=== PATIENT | female | born 1940 | race Caucasian/White ===

== ENCOUNTER → 2017-01-25 | Outpatient (CLI) | payer MEDICARE, BC ==
[2017-01-25 13:47] LABS: ALKALINE PHOSPHATASE 83 U/L (45-117); ALT (GPT) 29 U/L (10-53); ANION GAP 8 MEQ/L (5-15); AST (GOT) 20 U/L (15-37); BICARBONATE 28.9 MEQ/L (21.0-32.0); BLOOD UREA NITROGEN 15 MG/DL (7-18); CHLORIDE 108 MEQ/L (98-107); GLOMERULAR FILTRATION RATE 72 ML/MIN (>89); GLUCOSE,FASTING 108 MG/DL (74-99); HDL CHOLESTEROL 79.8 MG/DL (40.0-60.0); LDL CHOLESTEROL 64 MG/DL (0-99); SODIUM (NA) 145 MEQ/L (136-145); TOTAL BILIRUBIN ADULT 0.3 MG/DL (0.2-1.0)
== END ==
LOC: PLAB 08:32
PROVIDERS: ATTEND Family Medicine
DX: E78.2 Mixed hyperlipidemia (principal); E03.9 Hypothyroidism, unspecified; R73.01 Impaired fasting glucose
CPT/HCPCS: 36415; 80053; 80061; 84443

== ENCOUNTER → 2017-07-27 | Outpatient (CLI) | payer MEDICARE, BC ==
[2017-07-27 10:42] LABS: ANION GAP 7 MEQ/L (5-15); AST (GOT) 21 U/L (15-37); BICARBONATE 27.9 MEQ/L (21.0-32.0); BLOOD UREA NITROGEN 15 MG/DL (7-18); CHLORIDE 107 MEQ/L (98-107); GLOMERULAR FILTRATION RATE 82 ML/MIN (>89); GLUCOSE,FASTING 118 MG/DL (74-99); POTASSIUM 4.1 MEQ/L (3.5-5.1); SODIUM (NA) 142 MEQ/L (136-145)
[2017-07-27 10:43] LABS: ALT (GPT) 27 U/L (10-53)
[2017-07-27 10:53] LABS: ALKALINE PHOSPHATASE 100 U/L (45-117); HDL CHOLESTEROL 65.6 MG/DL (40.0-60.0); LDL CHOLESTEROL 74 MG/DL (0-99); TOTAL BILIRUBIN ADULT 0.3 MG/DL (0.2-1.0)
== END ==
LOC: PLAB 07:31
PROVIDERS: ATTEND Family Medicine
DX: E78.2 Mixed hyperlipidemia (principal); E03.9 Hypothyroidism, unspecified
CPT/HCPCS: 36415; 80053; 80061; 84443

== ENCOUNTER → 2017-08-18 | Outpatient (CLI) | payer MEDICARE, BC | LOC: PLAB 09:53 | PROVIDERS: ATTEND Family Medicine | DX: E03.9 Hypothyroidism, unspecified (principal) | CPT/HCPCS: 36415; 84439 ==

== ENCOUNTER → 2017-12-22 | Outpatient (CLI) | payer MEDICARE, BC ==
[2017-12-22 13:56] LABS: FREE T3 2.11 PG/ML (2.18-3.98); FREE T4 0.83 NG/DL (0.76-1.46)
== END ==
LOC: PLAB 09:47
PROVIDERS: ATTEND Family Medicine
DX: E03.9 Hypothyroidism, unspecified (principal)
CPT/HCPCS: 36415; 84439; 84443; 84481; 84482

== ENCOUNTER → 2018-01-26 | Outpatient (CLI) | payer MEDICARE, BC ==
[2018-01-26 10:44] LABS: AUTOMATED NEUTROPHIL # 2.1 TH/MM3 (1.8-7.7); BASOPHIL % 0.8 % (0.0-2.0); EOSINOPHIL # 0.1 TH/MM3 (0-0.4); EOSINOPHIL % 3.2 % (0.0-4.0); HEMATOCRIT 40.4 % (35.0-46.0); HEMOGLOBIN 13.4 GM/DL (11.6-15.3); LYMPH % 36.9 % (9.0-44.0); LYMPHOCYTE # 1.6 TH/MM3 (1.0-4.8); MEAN CELL VOLUME 92.1 FL (80.0-100.0); MEAN CORPUSCULAR HEMOGLOBIN 30.6 PG (27.0-34.0); MEAN CORPUSCULAR HGB CONC 33.3 % (32.0-36.0); MEAN PLATELET VOLUME 9.8 FL (7.0-11.0); MONO % 10.7 % (0.0-8.0); MONOCYTE # 0.5 TH/MM3 (0-0.9); NEUT % 48.4 % (16.0-70.0); PLATELET COUNT 174 TH/MM3 (150-450); RED BLOOD COUNT 4.39 MIL/MM3 (4.00-5.30); RED CELL DISTRIBUTION WIDTH 13.7 % (11.6-17.2); WHITE BLOOD COUNT 4.4 TH/MM3 (4.0-11.0)
[2018-01-26 10:54] LABS: ALBUMIN 3.8 GM/DL (3.4-5.0); AST (GOT) 24 U/L (15-37); BICARBONATE 28.5 MEQ/L (21.0-32.0); BLOOD UREA NITROGEN 12 MG/DL (7-18); CALCIUM 8.6 MG/DL (8.5-10.1); CHLORIDE 110 MEQ/L (98-107); CHOLESTEROL 155 MG/DL (120-200); CREATININE 0.69 MG/DL (0.50-1.00); GLOMERULAR FILTRATION RATE 82 ML/MIN (>89); GLUCOSE,FASTING 118 MG/DL (74-99); SODIUM (NA) 143 MEQ/L (136-145); TRIGLYCERIDES 87 MG/DL (42-150)
[2018-01-26 11:06] LABS: ALKALINE PHOSPHATASE 82 U/L (45-117); ALT (GPT) 34 U/L (10-53); CHOLESTEROL/ HDL RATIO 2.18 RATIO; HDL CHOLESTEROL 70.8 MG/DL (40.0-60.0); LDL CHOLESTEROL 67 MG/DL (0-99); TOTAL BILIRUBIN ADULT 0.5 MG/DL (0.2-1.0); TOTAL PROTEIN 7.5 GM/DL (6.4-8.2)
== END ==
LOC: PLAB 07:09
PROVIDERS: ATTEND Family Medicine
DX: E78.2 Mixed hyperlipidemia (principal); R73.01 Impaired fasting glucose; R06.02 Shortness of breath; E03.9 Hypothyroidism, unspecified
CPT/HCPCS: 36415; 80053; 80061; 84443; 85025

== ENCOUNTER → 2018-02-27 | Outpatient (CLI) | payer MEDICARE, BC ==
[2018-02-27 13:59] LABS: HEMOGLOBIN A1C 5.8 % (4.3-6.0)
[2018-02-27 14:08] LABS: RHEUMATOID FACTOR SCREEN NEGATIVE (NEGATIVE)
[2018-02-27 14:18] LABS: C-REACTIVE PROTEIN 0.65 MG/DL (0.00-0.30); FREE T3 2.86 PG/ML (2.18-3.98); FREE T4 1.39 NG/DL (0.76-1.46)
== END ==
LOC: PLAB 08:59
PROVIDERS: ATTEND Family Medicine
DX: E03.9 Hypothyroidism, unspecified (principal); J84.10 Pulmonary fibrosis, unspecified; E11.9 Type 2 diabetes mellitus without complications
CPT/HCPCS: 36415; 83036; 84439; 84443; 84481; 84482; 85652; 86038; 86140; 86430

== ENCOUNTER 2018-12-20 12:03 | Inpatient (IN) ==
--- NOTE | 2018-12-20 13:06 | ED ---
HPI General Chief complaint: Back Pain/Injury Stated complaint: Evac/Rt side pain Time Seen by Provider: 12/20/18 12:49 Source: patient Mode of arrival: ambulatory Limitations: no limitations History of Present Illness HPI narrative: 78yo F with PMH of hyperlipidemia, pulmonary fibrosis here with sob and right sided chest pain since yesterday. Pain radiates from right lower lung to right chest and is sharp, worst with breathing. +Cough. Pain is moderate in severity and constant. Denies any fever, n/v, abdominal pain, trauma, focal weakness or numbness. Denies any PE/DVT, hemoptysis. Related Data Home Medications Medication Instructions Recorded Confirmed levothyroxine 125 mcg PO DAILY 12/20/18 12/20/18 lovastatin mg PO DAILY 12/20/18 multivitamin 1 cap PO QAM 12/20/18 12/20/18 Allergies Allergy/AdvReac Type Severity Reaction Status Date / Time acetaminophen Allergy Severe Itching Verified 12/20/18 14:24 amoxicillin Allergy Severe Muscle Pain Verified 12/20/18 12:14 aspirin Allergy Severe Itching Verified 12/20/18 14:24 oxycodone Allergy Severe Itching Verified 12/20/18 14:24 Review of Systems ROS: all other systems reviewed are negative [facility] Surgical History Surgical History H/O oophorectomy (Acute) History of cholecystectomy (Acute) History of foot surgery (Acute) Social History Social History Substance History: No History of Abuse Smoking Status: Former smoker Tobacco Type: Cigarettes How Often Do You Have a Drink Containing Alcohol: Monthly or less Recent Travel in [facility] within the Last 8 Weeks: No Recent Out of Country Travel within the Last 8 Weeks: No Immunization History Tetanus Immunization: >5 Years Exam Narrative Exam Narrative: GENERAL: 78yo F in mild distress. SKIN: Focused skin assessment warm/dry. HEAD: Atraumatic. Normocephalic. EYES: Pupils equal and round. No scleral icterus. No injection or drainage. ENT: No nasal bleeding or discharge. Mucous membranes pink and moist. NECK: Trachea midline. No JVD. CARDIOVASCULAR: Regular rate and rhythm. No murmur appreciated. RESPIRATORY: + accessory muscle use. Crackles in right lower lung. GASTROINTESTINAL: Abdomen soft, non-tender, nondistended. MUSCULOSKELETAL: No obvious deformities. No clubbing. No cyanosis. Trace bilateral lower extremity edema. NEUROLOGICAL: Awake and alert. No obvious cranial nerve deficits. Motor grossly within normal limits. Normal speech. PSYCHIATRIC: Appropriate mood and affect; insight and judgment normal. Course Initial Documented Vital Signs Temperature 98 F 12/20/18 12:07 Pulse Rate 80 12/20/18 12:07 Respiratory Rate 20 12/20/18 12:07 Blood Pressure 150/79 H 12/20/18 12:07 Pulse Oximetry 95 12/20/18 12:07 Last Documented Vital Signs Temperature 98.0 F 12/21/18 14:15 Pulse Rate 86 12/21/18 14:30 Respiratory Rate 20 12/21/18 14:30 Blood Pressure 131/59 L 12/21/18 14:30 Pulse Oximetry 94 L 12/21/18 14:30 Critical Care Time Critical Care Time: Yes Total Critical Care Time: 40 Attestation: Aggregate critical care time was 40 minutes. Time to perform other separately billable procedures was not included in the critical care time. My time did not include minutes spent treating any other patients simultaneously or on activities that did not directly contribute to the patient's treatment. The services I provided to this patient were to treat and/or prevent clinically significant deterioration that could result in: Cardiovascular collapse or . I provided critical care services requiring my management, as noted below: Chart data review, documentation time, medication orders and management, vital sign assessments/reviewing monitor data, ordering and reviewing lab tests, ordering and interpreting/reviewing x-rays and diagnostic studies, care of the patient and discussion of the patient with the admitting physicians. Medical Decision Making MDM Narrative Medical decision making narrative: 78yo F with right sided chest pain and sob since yesterday. O2 sat fluctuates between 91-95% on RA. Pt said she usually takes aspirin for pain and is not allergic to it and wants that for pain so given one dose. CXR showed patchy interstitial infiltrates, right worst than left. Pt has not been hospitalized in last 3 months and denies any anaphylactic reaction to amoxicillin. Said she just gets muscle ache. Pt given ceftriaxone and azithromycin. Labs reviewed, no leukocytosis. H/H normal. Hyponatremia at 119. Added legionella. Hypochloremia. Pt given IVF NS. Troponin negative. BNP normal. D-dimer mildly elevated at 0.51. CTA chest showed right hilar mass with abnormal soft tissue extending directly into the mediastinum with some circumferential involvement of left main pulmonary artery and right main bronchus. Not present on previous study. 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 Ultrasound guided bronchoscopy recommended for diagnosis. Discussed with personal counselor Dr. Pfeiffer who recommended transfer to [facility] after midnight and he will do bronchoscopy tomorrow. Agrees with antibiotics. Discussed with Dr. Vazquez and accepted to his service. Medical Screen Exam Complete: Yes Emergency Medical Condition: Yes Differential Diagnosis Differential Diagnosis: Pneumonia vs. pleural effusion vs. pulmonary fibrosis vs. PE vs. ACS Lab Data Result diagrams: 12/21/18 08:10 12/21/18 08:10 Lab Results 12/20/18 12/20/18 12/20/18 Range/Units 13:02 13:02 13:02 CBC w Diff Auto diff final WBC 10.8 (4.0-11.0) th/mm3 RBC 4.63 (4.00-5.30) mil/mm3 Hgb 13.7 (11.6-15.3) gm/dL Hct 41.0 (35.0-46.0) % MCV 88.6 (80.0-100.0) fL MCH 29.6 (27.0-34.0) pg MCHC 33.4 (32.0-36.0) % RDW 12.3 (11.6-17.2) % Plt Count 215 (150-450) th/mm3 MPV 8.8 (7.0-11.0) fL Neut % (Auto) 85.3 H (16.0-70.0) % Lymph % (Auto) 7.5 L (9.0-44.0) % Cache % (Auto) 6.7 (0.0-8.0) % Eos % (Auto) 0.2 (0.0-4.0) % Baso % (Auto) 0.3 (0.0-2.0) % Neut # (Auto) 9.3 H (1.8-7.7) th/mm3 Lymph # (Auto) 0.8 L (1.0-4.8) th/mm3 Cache # (Auto) 0.7 (0.0-0.9) th/mm3 Eos # (Auto) 0.0 (0.0-0.4) th/mm3 Baso # (Auto) 0.0 (0.0-0.2) th/mm3 WBC Differential . Differential Comment . PT 10.1 (9.8-11.6) sec INR 1.0 Ratio APTT 29.4 (23.4-31.7) sec D-Dimer Quant (PE/DVT) 0.51 H (0.00-0.50) mg/L FEU Sodium 119 L* (136-145) meq/L Potassium 4.2 (3.5-5.1) meq/L Chloride 85 L (98-107) meq/L Carbon Dioxide 25.4 (21.0-32.0) meq/L Anion Gap 9 (5-15) meq/L BUN 9 (7-18) mg/dL Creatinine 0.56 (0.50-1.00) mg/dL Estimated GFR Greater than 89 (>89) mL/min Random Glucose 140 H (74-106) mg/dL Calcium 8.9 (8.5-10.1) mg/dL Total Bilirubin 0.7 (0.2-1.0) mg/dL AST 18 (15-37) U/L ALT 26 (10-53) U/L Alkaline Phosphatase 111 (45-117) U/L Lactate Dehydrogenase (84-246) U/L Troponin I Less than 0.02 L (0.02-0.05) ng/mL B-Natriuretic Peptide (0-100) pg/mL Total Protein 8.2 (6.4-8.2) g/dL Albumin 4.1 (3.4-5.0) g/dL Tumor Marker AFP (0.5-8.0) ng/mL Carcinoembryonic Ag (0.2-5.0) ng/mL CA 15-3 Antigen (0.0-32.4) U/mL CA 125 Antigen (0.0-30.2) U/mL 12/20/18 12/20/18 12/20/18 Range/Units 13:02 18:01 18:01 CBC w Diff WBC (4.0-11.0) th/mm3 RBC (4.00-5.30) mil/mm3 Hgb (11.6-15.3) gm/dL Hct (35.0-46.0) % MCV (80.0-100.0) fL MCH (27.0-34.0) pg MCHC (32.0-36.0) % RDW (11.6-17.2) % Plt Count (150-450) th/mm3 MPV (7.0-11.0) fL Neut % (Auto) (16.0-70.0) % Lymph % (Auto) (9.0-44.0) % Cache % (Auto) (0.0-8.0) % Eos % (Auto) (0.0-4.0) % Baso % (Auto) (0.0-2.0) % Neut # (Auto) (1.8-7.7) th/mm3 Lymph # (Auto) (1.0-4.8) th/mm3 Cache # (Auto) (0.0-0.9) th/mm3 Eos # (Auto) (0.0-0.4) th/mm3 Baso # (Auto) (0.0-0.2) th/mm3 WBC Differential Differential Comment PT (9.8-11.6) sec INR Ratio APTT (23.4-31.7) sec D-Dimer Quant (PE/DVT) (0.00-0.50) mg/L FEU Sodium (136-145) meq/L Potassium (3.5-5.1) meq/L Chloride (98-107) meq/L Carbon Dioxide (21.0-32.0) meq/L Anion Gap (5-15) meq/L BUN (7-18) mg/dL Creatinine (0.50-1.00) mg/dL Estimated GFR (>89) mL/min Random Glucose (74-106) mg/dL Calcium (8.5-10.1) mg/dL Total Bilirubin (0.2-1.0) mg/dL AST (15-37) U/L ALT (10-53) U/L Alkaline Phosphatase (45-117) U/L Lactate Dehydrogenase 231 (84-246) U/L Troponin I (0.02-0.05) ng/mL B-Natriuretic Peptide 43 (0-100) pg/mL Total Protein (6.4-8.2) g/dL Albumin (3.4-5.0) g/dL Tumor Marker AFP 11.9 H (0.5-8.0) ng/mL Carcinoembryonic Ag 1.6 (0.2-5.0) ng/mL CA 15-3 Antigen 36.0 H (0.0-32.4) U/mL CA 125 Antigen 6.1 (0.0-30.2) U/mL 12/21/18 12/21/18 Range/Units 08:10 08:10 CBC w Diff WBC 3.9 L D (4.0-11.0) th/mm3 RBC 4.31 (4.00-5.30) mil/mm3 Hgb 13.2 (11.6-15.3) gm/dL Hct 38.3 (35.0-46.0) % MCV 88.9 (80.0-100.0) fL MCH 30.6 (27.0-34.0) pg MCHC 34.4 (32.0-36.0) % RDW 13.3 (11.6-17.2) % Plt Count 201 (150-450) th/mm3 MPV 8.8 (7.0-11.0) fL Neut % (Auto) 86.8 H (16.0-70.0) % Lymph % (Auto) 10.9 (9.0-44.0) % Cache % (Auto) 2.3 (0.0-8.0) % Eos % (Auto) 0.0 (0.0-4.0) % Baso % (Auto) 0.0 (0.0-2.0) % Neut # (Auto) 3.4 (1.8-7.7) th/mm3 Lymph # (Auto) 0.4 L (1.0-4.8) th/mm3 Cache # (Auto) 0.1 (0.0-0.9) th/mm3 Eos # (Auto) 0.0 (0.0-0.4) th/mm3 Baso # (Auto) 0.0 (0.0-0.2) th/mm3 WBC Differential . Differential Comment Auto diff final PT (9.8-11.6) sec INR Ratio APTT (23.4-31.7) sec D-Dimer Quant (PE/DVT) (0.00-0.50) mg/L FEU Sodium 118 L* (136-145) meq/L Potassium 4.2 (3.5-5.1) meq/L Chloride 85 L (98-107) meq/L Carbon Dioxide 23.9 (21.0-32.0) meq/L Anion Gap 9 (5-15) meq/L BUN 7 (7-18) mg/dL Creatinine 0.45 L (0.50-1.00) mg/dL Estimated GFR Greater than 89 (>89) mL/min Random Glucose 147 H (74-106) mg/dL Calcium 8.5 (8.5-10.1) mg/dL Total Bilirubin 0.7 (0.2-1.0) mg/dL AST 16 (15-37) U/L ALT 25 (10-53) U/L Alkaline Phosphatase 99 (45-117) U/L Lactate Dehydrogenase (84-246) U/L Troponin I (0.02-0.05) ng/mL B-Natriuretic Peptide (0-100) pg/mL Total Protein 7.7 (6.4-8.2) g/dL Albumin 3.4 D (3.4-5.0) g/dL Tumor Marker AFP (0.5-8.0) ng/mL Carcinoembryonic Ag (0.2-5.0) ng/mL CA 15-3 Antigen (0.0-32.4) U/mL CA 125 Antigen (0.0-30.2) U/mL Imaging Data Radiologist's impression: Chest X-Ray 12/20/18 12:53 CONCLUSION: Patchy interstitial infiltrates Chest CTA 12/20/18 14:15 CONCLUSION: 1. Right hilar mass with abnormal soft tissue extending directly into the mediastinum with some circumferential involvement of the left main pulmonary artery and the right main bronchus. Findings were not present on the previous study 2. 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 Ultrasound-guided bronchoscopy could easily be used to make a diagnosis Chest X-Ray 12/21/18 12:42 CONCLUSION: Cardiomegaly with basilar dependent airspace disease in the lungs. No pneumothorax. ECG Data EKG Prior to Arrival: No Attestation: I personally reviewed and interpreted this ECG as follows: Interpretation: NSR 77bpm. Normal axis. OH interval 193ms. Q wave III. No significant ST elevation or depression. Discharge Plan Discharge Disposition Patient Disposition: ED Admit(ED Internal Use Only) Discharge Order Discharge Orders: ED Use Only Admit Order (Routine); Ordered 12/20/18 Ordered By: Cece Hussein Discharge Details Diagnosis: Hilar mass Physicians Team ED Provider: Cece Hussein Primary Care Provider: Belgica Méndez Attending Provider: Francisco Moser Other Providers: Rashi Pfeiffer Zafar Status ED Status: Left Department Discharge Information Discharge Date/Time: 12/20/18 19:47
[2018-12-20] MEDS ORDERED: Aspirin 325 MG Tablet PO ONE (13:17)
--- NOTE | 2018-12-20 13:18 | XR ---
EXAM DATE: 12/20/2018 1:16 PM EST AGE/SEX: 78 years / Female INDICATIONS: Right side chest pain while breathing. CLINICAL DATA: This is the patient's initial encounter. Patient reports that signs and symptoms have been present for 2 days and indicates a pain score of 7/10. MEDICAL/SURGICAL HISTORY: . Pulmonary fibrosis. Cholecystectomy. Oophorectomy. COMPARISON: [facility], CT CHEST W/O CONTRAST, 01/25/2018. . FINDINGS: Patchy interstitial infiltrate, right worse than left. Cardiac contours are satisfactory. CONCLUSION: Patchy interstitial infiltrates Electronically signed by: Rashi Crowe MD Board Certified Radiologist 12/20/2018 1:17 PM EST
[2018-12-20 13:19] LABS: Baso % (Auto) 0.3 % (0.0-2.0); Eos % (Auto) 0.2 % (0.0-4.0); Hemoglobin 13.7 gm/dL (11.6-15.3); Lymph # (Auto) 0.8 th/mm3 (1.0-4.8); Lymph % (Auto) 7.5 % (9.0-44.0); Mean Corpuscular HGB Conc 33.4 % (32.0-36.0); Mean Corpuscular Hemoglobin 29.6 pg (27.0-34.0); Mean Corpuscular Volume 88.6 fL (80.0-100.0); Mean Platelet Volume 8.8 fL (7.0-11.0); Mono # (Auto) 0.7 th/mm3 (0.0-0.9); Mono % (Auto) 6.7 % (0.0-8.0); Neut # (Auto) 9.3 th/mm3 (1.8-7.7); Neut % (Auto) 85.3 % (16.0-70.0); Platelet Count 215 th/mm3 (150-450); Red Blood Count 4.63 mil/mm3 (4.00-5.30); Red Cell Distribution Width 12.3 % (11.6-17.2); White Blood Count 10.8 th/mm3 (4.0-11.0)
[2018-12-20 13:41] LABS: Activated Partial Thrombo Time 29.4 sec (23.4-31.7); Prothrombin Time 10.1 sec (9.8-11.6)
[2018-12-20 13:45] LABS: D-Dimer 0.51 mg/L FEU (0.00-0.50)
[2018-12-20 13:46] LABS: Alanine Aminotransferase 26 U/L (10-53); Albumin 4.1 g/dL (3.4-5.0); Alkaline Phosphatase 111 U/L (45-117); Anion Gap 9 meq/L (5-15); Aspartate Aminotransferase 18 U/L (15-37); Blood Urea Nitrogen 9 mg/dL (7-18); Calcium 8.9 mg/dL (8.5-10.1); Carbon Dioxide 25.4 meq/L (21.0-32.0); Chloride 85 meq/L (98-107); Glomerular Filtration Rate Greater Than 89 mL/min (>89); Glucose,Random 140 mg/dL (74-106); Potassium 4.2 meq/L (3.5-5.1); Total Protein 8.2 g/dL (6.4-8.2)
[2018-12-20] MEDS ORDERED: Azithromycin 250 MG Tablet PO ONE (14:15)
[2018-12-20 14:36] LABS: Sodium 119 meq/L (136-145)
--- NOTE | 2018-12-20 15:06 | CT ---
EXAM DATE: 12/20/2018 2:57 PM EST AGE/SEX: 78 years / Female INDICATIONS: Short of breath, right sided chest pain and cough. CLINICAL DATA: This is the patient's initial encounter. Patient reports that signs and symptoms have been present for 1 day and indicates a pain score of 10/10. MEDICAL/SURGICAL HISTORY: . Pulmonary fibrosis. Cholecystectomy. Oophorectomy. RADIATION DOSE: 14.82 CTDI (mGy) COMPARISON: [facility], CT CHEST W/O CONTRAST, 08/03/2017. . TECHNIQUE: Volumetric scanning was performed using a multi-row detector CT scanner during bolus infu lisette of 75 ml Omnipaque 350 (iohexol) nonionic water-soluble contrast as a single exam dose. The jair a was post processed with a variety of visualization algorithms including full volume maximum intensi ty projection and sliding thin slab reformation. Using automated exposure control and adjustment of t he mA and/or kV according to patient size, radiation dose was kept as low as reasonably achievable to obtain optimal diagnostic quality images. DICOM format image data is available electronically for r eview and comparison. FINDINGS: Pulmonary arteries Arteries: There is good visualization of the central pulmonary arteries. There is a large mass involving the right hilum with subcarinal adenopathy that is partially occluding the rig ht main pulmonary artery. There is no evidence for pulmonary emboli. LUNGS: Early airspace disease is seen in the right lung with a small right pleural effusion. Mediastinum: There is no axillary adenopathy. There is mediastinal adenopathy with nodes in the AP wi ndow, precarinal space and a large subcarinal mass from direct extension from the right hilar mass. Portion of liver identified is free of focal defects. CONCLUSION: 1. Right hilar mass with abnormal soft tissue extending directly into the mediastinum with some circ umferential involvement of the left main pulmonary artery and the right main bronchus. Findings were not present on the previous study 2. 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 Ultrasound-guided bronchoscopy could easily be used to make a diagnosis Electronically signed by: Con Singh MD Board Certified Radiologist 12/20/2018 3:04 PM EST
[2018-12-20] MEDS ORDERED: Acetaminophen 325 MG Tablet PO PRN (16:05)
[2018-12-20] MEDS: Sod Chloride 0.9% Inj 1,000 ML IV.CONT SCH (17:00)
--- NOTE | 2018-12-20 17:15 | P.HPIM ---
History of Present Illness Primary Care Physician: Belgica Méndez MD Chief Complaint: Acute onset of shortness of breath along with right-sided chest pain History of Present Illness: 78-year-old female for past medical history of hypothyroidism, hyperlipidemia and a 40+ years of prior history of tobacco abuse presented to the ED today for evaluation of an acute onset of shortness of breath which started around 3 AM this morning. Patient states, she became slightly short of breath and was gasping for air as a result she could not talk. She also noted significant right-sided pain mostly on the right shoulder blade as well as the right breast area. She presented to the ED , and a chest x-ray was positive for patchy interstitial infiltrate. Secondary to elevated d-dimer a chest CT was ordered which revealed a right hilar mass for which pulmonary medicine was consulted for bronchoscopy. Patient state, recent chest MRI was performed on and revealed pulmonary fibrosis however without any evidence of lung mass. Abnormal lab include sodium of 119 and chloride of 85. Patient denies any nausea and vomiting. She also complained of dry cough. She has had no hemoptysis or GI bleed. Inpatient Certification Inpatient Certification: I certify that the inpatient services were ordered in accordance with Medicare regulations governing the order. This includes certification that hospital inpatient services are reasonable and necessary and in the case of services not specified as inpatient-only under 42 CFR 419.22(n), that they are appropriately provided as inpatient services in accordance to with the 2-midnight benchmark under 43 CFR 412.3(e) Estimated Total Length of Stay (Days): 2 Plans for Post Hospital Care: Not yet determined Review of Systems Review of Systems: all other systems reviewed are negative [facility] Surgical History Surgical History H/O oophorectomy (Acute) History of cholecystectomy (Acute) History of foot surgery (Acute) Social History Social History Substance History: No History of Abuse Smoking Status: Former smoker Tobacco Type: Cigarettes How Often Do You Have a Drink Containing Alcohol: Monthly or less Recent Travel in [facility] within the Last 8 Weeks: No Recent Out of Country Travel within the Last 8 Weeks: No Immunization History Tetanus Immunization: >5 Years Medications and Allergies Allergies Allergy/AdvReac Type Severity Reaction Status Date / Time acetaminophen Allergy Severe Itching Verified 12/20/18 14:24 amoxicillin Allergy Severe Muscle Pain Verified 12/20/18 12:14 aspirin Allergy Severe Itching Verified 12/20/18 14:24 oxycodone Allergy Severe Itching Verified 12/20/18 14:24 Home Medications Medication Instructions Recorded Confirmed Type levothyroxine 125 mcg PO DAILY 12/20/18 12/20/18 History lovastatin mg PO DAILY 12/20/18 History multivitamin 1 cap PO QAM 12/20/18 12/20/18 History Active Medications: Active Medications Acetaminophen (Tylenol) 650 mg PO Q4H PRN PRN Reason: Temp > 100.4 Al Hydroxide/Mg Hydroxide (Milk Of Joaquín Singh) 30 ml PO Q12H PRN PRN Reason: Mild Constipation Albuterol (Duoneb Neb (Prn)) 1 ampul NEB Q2HR NEB PRN PRN Reason: SHORTNESS OF BREATH Albuterol (Duoneb Neb (Bill)) 1 ampul NEB Q6HR WHILE AWAKE NEB BILL Enalaprilat (Vasotec Inj) 2.5 mg IV.PUSH Q6H PRN PRN Reason: SBP>160, DBP>90 Guaifenesin (Mucinex Er) 600 mg PO BID BILL Sodium Chloride (Ns Inj) 1,000 mls @ 70 mls/hr IV.CONT .[id number] BILL Last Admin: 12/20/18 17:00 Dose: 70 mls/hr Azithromycin 500 mg/ Sodium (Chloride) 250 mls @ 250 mls/hr IV.SIG Q24H BILL Ceftriaxone Sodium 1,000 mg/ (Sodium Chloride) 100 mls @ 200 mls/hr IV.SIG Q24H BILL Non-Formulary Medication (Levothyroxine [Levothyroxine]) 125 mcg PO DAILY BILL Ondansetron HCl (Zofran Inj) 4 mg IV.PUSH Q6H PRN PRN Reason: NAUSEA OR VOMITING Sodium Chloride (Ns Flush) 2 ml IV.FLUSH BID BILL Sodium Chloride (Ns Flush) 2 ml IV.FLUSH PRN PRN PRN Reason: FLUSH AFTER USING IV ACCESS Physical Exam Vital signs: Vital Signs 12/20/18 12:07 12/20/18 12:20 12/20/18 12:53 Temperature 98 F Pulse Rate 80 Respiratory Rate 20 24 Blood Pressure 150/79 H Pulse Oximetry 95 93 L 96 12/20/18 13:00 12/20/18 14:37 12/20/18 15:40 Temperature Pulse Rate 80 77 84 Respiratory Rate 22 18 22 Blood Pressure 138/73 141/76 H 156/86 H Pulse Oximetry 94 L 95 95 Intake & Output 12/19/18 12/20/18 12/20/18 18:59 06:59 18:59 Intake Total 100 / 100 Balance 100 / 100 Weight 85 kg Intake: IV 100 / 100 Rocephin Inj 1,000 MG In NS Inj 100 / 100 100 ML @ 200 mls/hr IV.SIG ONCE ONE Rx#:[id number] Narrative: GENERAL: NAD SKIN: Warm and dry. HEAD: Atraumatic. Normocephalic. EYES: Pupils equal and round. No scleral icterus. No injection or drainage. ENT: No nasal bleeding or discharge. Mucous membranes pink and moist. NECK: Trachea midline. No JVD. CARDIOVASCULAR: Regular rate and rhythm. RESPIRATORY: No accessory muscle use. Clear to auscultation. Breath sounds decrease R>L. GASTROINTESTINAL: Abdomen soft, non-tender, nondistended. Hepatic and splenic margins not palpable. MUSCULOSKELETAL: Extremities without clubbing, cyanosis, or edema. No obvious deformities. NEUROLOGICAL: Awake and alert. No obvious cranial nerve deficits. Motor grossly within normal limits. Five out of 5 muscle strength in the arms and legs. Normal speech. PSYCHIATRIC: Appropriate mood and affect; insight and judgment normal. Results Labs CBC & Chem 7: 12/20/18 13:02 12/20/18 13:02 Imaging Impressions Chest X-Ray 12/20/18 12:53 CONCLUSION: Patchy interstitial infiltrates Chest CTA 12/20/18 14:15 CONCLUSION: 1. Right hilar mass with abnormal soft tissue extending directly into the mediastinum with some circumferential involvement of the left main pulmonary artery and the right main bronchus. Findings were not present on the previous study 2. 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 Ultrasound-guided bronchoscopy could easily be used to make a diagnosis Caprini VTE Risk Assessment Caprini VTE Risk Assessment: Moderate/High Risk (score >= 2) Caprini Risk Assessment Model: Point Value = 1 Point Value = 2 Point Value = 3 Point Value = 5 Age 41-60 Minor surgery BMI > 25 kg/m2 Swollen legs Varicose veins or History of unexplained or recurrent spontaneous Oral contraceptives or hormone replacement Sepsis (< 1 month) Serious lung disease, including pneumonia (< 1 month) Abnormal pulmonary function Acute myocardial infarction Congestive heart failure (< 1 month) History of inflammatory bowel disease Medical patient at bed rest Age 61-74 Arthroscopic surgery Major open surgery (> 45 min) Laparoscopic surgery (> 45 min) Malignancy Confined to bed (> 72 hours) Immobilizing plaster cast Central venous access Age >= 75 History of VTE Family history of VTE Factor V Leiden Prothrombin [id number] Lupus anticoagulant Anticardiolipin antibodies Elevated serum homocysteine Heparin-induced thrombocytopenia Other congenital or acquired thrombophilia Stroke (< 1 month) Elective arthroplasty Hip, pelvis, or leg fracture Acute spinal cord injury (< 1 month) Prophylaxis Regimen: Total Risk Factor Score Risk Level Prophylaxis Regimen 0-1 Low Early ambulation 2 Moderate Order ONE of the following: *Sequential Compression Device (SCD) *Heparin 5000 units SQ BID 3-4 Higher Order ONE of the following medications: *Heparin 5000 units SQ TID *Enoxaparin/Lovenox 40 mg SQ daily (WT < 150 kg, CrCl > 30 mL/min) *Enoxaparin/Lovenox 30 mg SQ daily (WT < 150 kg, CrCl > 10-29 mL/min) *Enoxaparin/Lovenox 30 mg SQ BID (WT < 150 kg, CrCl > 30 mL/min) AND/OR *Sequential Compression Device (SCD) 5 or more Highest Order ONE of the following medications: *Heparin 5000 units SQ TID (Preferred with Epidurals) *Enoxaparin/Lovenox 40 mg SQ daily (WT < 150 kg, CrCl > 30 mL/min) *Enoxaparin/Lovenox 30 mg SQ daily (WT < 150 kg, CrCl > 10-29 mL/min) *Enoxaparin/Lovenox 30 mg SQ BID (WT < 150 kg, CrCl > 30 mL/min) AND *Sequential Compression Device (SCD) Assessment and Plan Plan 78-year-old female with Acute onset of shortness of breath Right-sided chest pain Right hilar mass on chest CT Chest CTA 12/20/18 1. Right hilar mass with abnormal soft tissue extending directly into the mediastinum with some circumferential involvement of the left main pulmonary artery and the right main bronchus. Findings were not present on the previous study 2. 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 after midnight Check tumor markers Patchy interstitial infiltrate on chest x-ray History of pulmonary fibrosis Dyspnea Status post IV azithromycin and Rocephin continue antibiotics pending sputum and culture report DuoNeb as needed and schedule Start Solu-Medrol schedule Pulmonary medicine consultation pending Maintain oxygen saturation above 92% Hypochloremic hyponatremia May be secondary to able right hilar mass Treat as an above Hyperglycemia Check hemoglobin A1c and treat accordingly DVT prophylaxis: Bilateral SCDs
--- NOTE | 2018-12-20 18:58 | MB ---
cc: Efrain Pfeiffer MD DATE: 12/20/2018 REASON FOR CONSULTATION: Lung mass. HISTORY OF PRESENT ILLNESS: This is a 78-year-old lady with a history of COPD, hyperlipidemia, hypothyroidism, and pulmonary fibrosis. She has been admitted with onset of chest pain acutely earlier this morning, which got worse through the day. The pain started around the right shoulder blade and moved into her chest and she could not take deep breaths and thus came to the emergency room. Upon arrival, she was sent for a CT chest. The chest CT demonstrated a right hilar mass, and no evidence of pulmonary emboli. She did, however, have pulmonary fibrosis. The patient has had no recent weight loss. No hemoptysis. Denies nausea, vomiting, fevers or chills. PAST SURGICAL HISTORY: Includes history of COPD, history of cholecystectomy and history of oophorectomy, and surgery on her foot. HABITS: The patient smoked 1 pack per day for over 40 years and quit many years ago. No significant alcohol use. She has been exposed to asbestos in the past. ALLERGIES: TYLENOL, AMOXICILLIN, ASPIRIN, OXYCODONE. FAMILY HISTORY: Her father of a ruptured aneurysm. Mother of old age. One sister had history for lung cancer, treated. REVIEW OF SYSTEMS: The patient has not lost weight. She has pains along the back and right chest, shortness of breath with activity. She has wheezing. She has epigastric distress. Denies any leg or calf muscle pains. She has some joint pains and denies anxiety or depression. MEDICATION LIST: 1. Levothyroxine 125 mcg daily. 2. Lovastatin 20 mg daily. PHYSICAL EXAMINATION: GENERAL: This is an averagely built, elderly, white female who is alert, pale and mildly dyspneic at rest. VITAL SIGNS: Her blood pressure is 130/70, pulse is 85, respirations 20, temperature 98. HEENT: Head is normocephalic. Pupils are reactive. Tongue is moist. Nasal mucosa edematous. Throat is clear. NECK: Supple. No lymphadenopathy. Trachea midline. CHEST: Equal movements, with decreased breath sounds over the right mid lower chest. There are wheezes scattered bilaterally. HEART: The heart sounds are regular, S1, S2 with no definite murmur, no S3. ABDOMEN: Soft, obese without masses. No organomegaly or tenderness. Bowel sounds are active. EXTREMITIES: Reveal varicosities and minimal edema. Reflexes are 1+ with no gross motor deficits. Cranial nerves are grossly intact. SKIN: Dry and cool. IMPRESSION: 1. Right hilar mass with chest pain. 2. Chronic obstructive pulmonary disease with an acute exacerbation. 3. Obstructive pneumonitis with pleurisy. 4. History of hypothyroidism. PLAN: The patient has been started on nebulized DuoNeb solution q.i.d., oxygen 2 liters nasal cannula, and will also be placed on Rocephin 1 gram IV daily, as well as Solu-Medrol 40 mg IV every 8 hours. A bronchoscopy will be scheduled. The potential risks of doing a bronchoscopy including bleeding, pneumothorax, respiratory failure, etc. were discussed and this will be scheduled for the morning. We will hold off on any anticoagulants presently. Thank you, Dr. Vazquez, for this consultation. MD BROOKE Hutson/david , 05:40 PM , 05:54 PM
--- NOTE | 2018-12-20 19:56 | ECG ---
Date Performed: 12/20/2018 Time Performed: 12:54:37 PTAGE: 78 years EKG: Sinus rhythm LOW QRS VOLTAGE IN PRECORDIAL LEADS BORDERLINE ECG Since PREVIOUS TRACING , no significant change noted PREVIOUS TRACIN12/15/2004 10.48 DOCTOR: America Warren Interpretating Date/Time 12/20/2018 19:55:49
[2018-12-20] MEDS: guaiFENesin 600 MG ER Tablet PO SCH (22:27)
[2018-12-20] MEDS: MethylPREDNISolone Sod Succinate Inj 40 MG/ML Vial IV.PUSH SCH (22:27)
[2018-12-20 23:25] LABS: Alpha Fetoprotein Tumor Marker 11.9 ng/mL (0.5-8.0); Carcinoembryonic Antigen 1.6 ng/mL (0.2-5.0)
[2018-12-21 00:02] LABS: Cancer Antigen 125 6.1 U/mL (0.0-30.2)
[2018-12-21] MEDS ORDERED: Levothyroxine 125 MCG Tablet PO SCH (06:00)
--- NOTE | 2018-12-21 06:21 | P.PNIM ---
Subjective Interval history: F/u lung mass. Improved shortness of breath and back pain. Refused breast exam Physical Exam Vital signs: Vital Signs 12/20/18 12:07 12/20/18 12:20 12/20/18 12:53 Temperature 98 F Pulse Rate 80 Respiratory Rate 20 24 Blood Pressure 150/79 H Pulse Oximetry 95 93 L 96 12/20/18 13:00 12/20/18 14:37 12/20/18 15:40 Temperature Pulse Rate 80 77 84 Respiratory Rate 22 18 22 Blood Pressure 138/73 141/76 H 156/86 H Pulse Oximetry 94 L 95 95 12/20/18 16:30 12/20/18 17:11 12/20/18 18:27 Temperature Pulse Rate 79 77 Respiratory Rate 20 20 Blood Pressure 137/79 169/96 H Pulse Oximetry 96 93 L 97 12/20/18 18:28 12/20/18 18:46 12/20/18 19:42 Temperature Pulse Rate 75 Respiratory Rate 18 18 Blood Pressure 145/81 H Pulse Oximetry 97 97 12/20/18 21:06 12/21/18 00:05 12/21/18 00:50 Temperature 97.7 F 98.3 F Pulse Rate 78 80 Respiratory Rate 20 18 Blood Pressure 168/84 H 128/86 Pulse Oximetry 98 97 95 12/21/18 03:15 12/21/18 05:13 Temperature 97.5 F L Pulse Rate 75 Respiratory Rate 18 18 Blood Pressure 153/69 H Pulse Oximetry 95 Intake & Output 12/20/18 12/20/18 12/21/18 06:59 18:59 06:59 Intake Total 100 / 100 200 / 200 Balance 100 / 100 200 / 200 Weight 85 kg 87.7 kg Intake: IV 100 / 100 200 / 200 NS Inj 1,000 ML @ 70 mls/hr IV. 200 / 200 CONT .[id number] DAGO Rx#: [id number] Rocephin Inj 1,000 MG In NS Inj 100 / 100 100 ML @ 200 mls/hr IV.SIG ONCE ONE Rx#:[id number] Other: # Voids 1 Narrative: GENERAL: NAD SKIN: Warm and dry. CARDIOVASCULAR: Regular rate and rhythm. RESPIRATORY: No accessory muscle use. Clear to auscultation. GASTROINTESTINAL: Abdomen soft, non-tender, nondistended. MUSCULOSKELETAL: Extremities without clubbing, cyanosis, or edema. No obvious deformities. NEUROLOGICAL: Awake and alert. No obvious cranial nerve deficits. Motor grossly within normal limits. Five out of 5 muscle strength in the arms and legs. Normal speech. PSYCHIATRIC: Appropriate mood and affect; insight and judgment normal. Results Labs CBC & Chem 7: 12/21/18 08:10 12/21/18 08:10 Imaging Imaging: ITS Impressions Chest X-Ray 12/20/18 12:53 CONCLUSION: Patchy interstitial infiltrates Chest CTA 12/20/18 14:15 CONCLUSION: 1. Right hilar mass with abnormal soft tissue extending directly into the mediastinum with some circumferential involvement of the left main pulmonary artery and the right main bronchus. Findings were not present on the previous study 2. 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 Ultrasound-guided bronchoscopy could easily be used to make a diagnosis Assessment and Plan Plan 78-year-old female with Acute onset of shortness of breath Right-sided chest pain Right hilar mass on chest CT Pulmonary medicine has been consulted for bronchoscopy, keep NPO Elevated AFP and Ca 15-[address] and consider onc consult COPD exac History of pulmonary fibrosis Dyspnea Status post IV azithromycin and Rocephin continue antibiotics pending sputum and culture report DuoNeb as needed and schedule Ct Solu-Medrol schedule Pulmonary medicine ff Maintain oxygen saturation above 92% Hypochloremic hyponatremia. Asymptomatic. 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 Seizure precautions and neuro checks Hyperglycemia Previously A1c 6.2, repeat A1c pending Low TSH and high FT4, Hx hypothyroidism decrease synthroid DVT prophylaxis: Bilateral SCDs
[2018-12-21] MEDS: MethylPREDNISolone Sod Succinate Inj 40 MG/ML Vial IV.PUSH SCH ×3 (06:26→22:22)
[2018-12-21] MEDS: Sod Chloride 0.9% Inj 1,000 ML IV.CONT SCH (06:52)
[2018-12-21] MEDS ORDERED: Metoprolol Tartrate 25 MG Tablet PO ONE (07:30)
[2018-12-21] MEDS ORDERED: Chlorhexidine Gluconate 2% 1 Pack (2 Cloths) TOPICAL ONE (07:30)
[2018-12-21] MEDS ORDERED: Sodium Chlor 0.9% Inj 500 ML IV.SIG SCH (08:00)
[2018-12-21 08:36] LABS: Hematocrit 38.3 % (35.0-46.0); Hemoglobin 13.2 gm/dL (11.6-15.3); Lymph # (Auto) 0.4 th/mm3 (1.0-4.8); Lymph % (Auto) 10.9 % (9.0-44.0); Mean Corpuscular HGB Conc 34.4 % (32.0-36.0); Mean Corpuscular Hemoglobin 30.6 pg (27.0-34.0); Mean Corpuscular Volume 88.9 fL (80.0-100.0); Mean Platelet Volume 8.8 fL (7.0-11.0); Mono # (Auto) 0.1 th/mm3 (0.0-0.9); Mono % (Auto) 2.3 % (0.0-8.0); Neut # (Auto) 3.4 th/mm3 (1.8-7.7); Neut % (Auto) 86.8 % (16.0-70.0); Platelet Count 201 th/mm3 (150-450); Red Blood Count 4.31 mil/mm3 (4.00-5.30); Red Cell Distribution Width 13.3 % (11.6-17.2); White Blood Count 3.9 th/mm3 (4.0-11.0)
[2018-12-21] MEDS: guaiFENesin 600 MG ER Tablet PO SCH ×2 (08:49→22:22)
[2018-12-21 09:13] LABS: Alanine Aminotransferase 25 U/L (10-53); Albumin 3.4 g/dL (3.4-5.0); Alkaline Phosphatase 99 U/L (45-117); Anion Gap 9 meq/L (5-15); Aspartate Aminotransferase 16 U/L (15-37); Blood Urea Nitrogen 7 mg/dL (7-18); Calcium 8.5 mg/dL (8.5-10.1); Carbon Dioxide 23.9 meq/L (21.0-32.0); Chloride 85 meq/L (98-107); Glomerular Filtration Rate Greater Than 89 mL/min (>89); Glucose,Random 147 mg/dL (74-106); Potassium 4.2 meq/L (3.5-5.1); Total Protein 7.7 g/dL (6.4-8.2)
[2018-12-21 09:17] LABS: Sodium 118 meq/L (136-145)
[2018-12-21] MEDS ORDERED: Diatrizoate Meglum/Diatrizoate Sod Liq 9 ML UDC PO ONE (10:47)
[2018-12-21] MEDS ORDERED: Lidocaine PF 1% Inj 5 ML Syringe OTHER ONE (12:12)
[2018-12-21] MEDS ORDERED: Neostigmine Inj 5 MG/5 ML Syringe IV.PUSH ONE (12:12)
[2018-12-21] MEDS ORDERED: Glycopyrrolate Inj 1 MG/5 ML Syringe IV.PUSH ONE (12:12)
[2018-12-21] MEDS ORDERED: fentaNYL Citrate Inj 100 MCG/2 ML Ampul ONE (13:09)
--- NOTE | 2018-12-21 13:14 | MP ---
cc: Efrain Pfeiffer MD DATE OF OPERATION: 12/21/2018 PROCEDURE PERFORMED: Fiberoptic bronchoscopy with biopsies, brushings and washings. PREOPERATIVE DIAGNOSIS: Right hilar mass. POSTOPERATIVE DIAGNOSIS: Right hilar mass. ANESTHESIA: General with intubation. SURGEON: Efrain Pfeiffer MD PROCEDURE AND FINDINGS: The patient, after informed consent was obtained for bronchoscopy and informing her of the potential risks of bleeding, pneumothorax, respiratory failure, etc., was brought to the OR and under general anesthesia, she was intubated. The Olympus IT 180 bronchoscope was used to visualize the bronchi. The scope was advanced through the endotracheal tube into the trachea. The trachea and mark appeared normal. Scope was then advanced into the right mainstem bronchus and the right upper lobe bronchus. The right upper lobe bronchus was mildly narrowed with mucosal edema and mucosal ridging, but no definite mass could be found. Brushings were done from here for cytology as well as brushings from the right main. Minimal bleeding was observed. Saline washings were done here. Next, the scope was advanced towards the right bronchus intermedius and the middle lobe bronchus. The right middle lobe bronchus was partially occluded with an irregular mucosal lesion extending from the bronchus intermedius downwards and was friable and bled easily to touch. Biopsies were done from this area as well as saline washings and lavage. Bleeding was controlled with epinephrine solution and cold saline and the bleeding was controlled. The scope was then advanced towards the right lower lobe segmental bronchi which demonstrated mucosal ridging and mild narrowing, but no definite mass could be seen. Saline washings were done. The scope was then advanced towards the left mainstem and left upper lobe segmental bronchi. These bronchi demonstrated no gross endobronchial lesions. Next, the lower lobe segmental bronchi were visualized, which demonstrated a few mucoid secretions, but no endobronchial lesions were seen. Saline washings were done and the procedure was then terminated. The patient tolerated the procedure well. Efrain Pfeiffer MD VJD/jl , 12:46 PM , 12:52 PM
--- NOTE | 2018-12-21 13:26 | XR ---
EXAM DATE: 12/21/2018 1:23 PM EST AGE/SEX: 78 years / Female INDICATIONS: Post bronchoscopy. Evaluate for pneumothorax. CLINICAL DATA: This is the patient's subsequent encounter. Patient reports that signs and symptoms h ave been present for 1 day and indicates a pain score of Nonresponsive. MEDICAL/SURGICAL HISTORY: . pulmonary fibrosis, hilar mass Cholecystectomy. oophorectomy COMPARISON: [facility], CHEST 1V SINGLE AP, 12/20/2018. . FINDINGS: A single AP view of the chest demonstrates cardiomegaly. No pneumothorax post bronchoscopy. Basilar d ependent airspace disease in the lungs. CONCLUSION: Cardiomegaly with basilar dependent airspace disease in the lungs. No pneumothorax. Electronically signed by: Jose Ramey MD Board Certified Radiologist 12/21/2018 1:25 PM EST
[2018-12-21 16:17] LABS: Hemoglobin A1c 6.1 % (4.3-6.0)
[2018-12-21] MEDS ORDERED: Phenol 1.4% 180 ML Spray Bottle PO PRN ×2 (18:34→18:45)
[2018-12-21 20:12] LABS: Anion Gap 10 meq/L (5-15); Blood Urea Nitrogen 9 mg/dL (7-18); Calcium 8.6 mg/dL (8.5-10.1); Carbon Dioxide 24.6 meq/L (21.0-32.0); Chloride 86 meq/L (98-107); Glomerular Filtration Rate Greater Than 89 mL/min (>89); Glucose,Random 131 mg/dL (74-106); Potassium 4.3 meq/L (3.5-5.1)
[2018-12-21 20:20] LABS: Sodium 121 meq/L (136-145)
[2018-12-21] MEDS: Azithromycin Inj 500 MG in Sodium Chlor 0.9% Inj 250 ML IV.SIG SCH (22:23)
[2018-12-22] MEDS: MethylPREDNISolone Sod Succinate Inj 40 MG/ML Vial IV.PUSH SCH ×3 (06:47→22:23)
[2018-12-22] MEDS: Levothyroxine 125 MCG Tablet PO SCH (06:49)
[2018-12-22 08:36] LABS: Anion Gap 8 meq/L (5-15); Blood Urea Nitrogen 10 mg/dL (7-18); Calcium 8.4 mg/dL (8.5-10.1); Carbon Dioxide 23.9 meq/L (21.0-32.0); Chloride 87 meq/L (98-107); Glomerular Filtration Rate Greater Than 89 mL/min (>89); Glucose,Random 149 mg/dL (74-106); Magnesium 2.1 mg/dL (1.5-2.5); Potassium 4.3 meq/L (3.5-5.1)
--- NOTE | 2018-12-22 08:41 | P.CON ---
History of Present Illness Service: Hematology/oncology. Consult date: 12/22/18 Requesting Physician: Francisco Moser Reason for Consult: Right hilar mass and mediastinal lymphadenopathy. Primary Care Provider: Belgica Méndez MD Chief Complaint: Difficulty breathing, cough, right sided posterior chest pain. History of Present Illness: Ms. Huerta is a very pleasant 78-year-old female who is originally from [facility], she reports having been a smoker for 40 years, she quit smoking 20 years ago after having smoked for close to 40 pack years. Patient reports over the past 2 weeks having had increased difficulty breathing with exertion and a dry cough. On the morning of Tuesday; 01/17/2019 she woke up at 3 in the morning with the pain along her right shoulder blade. Later that morning she woke up to notice the pain persisted, she was able to walk her dog and gradually became increasingly short of breath. She tells me she got to the point where she was unable to speak complete sentences because she could not "forced out air ". She is brought into the emergency department on 12/20/[address] imaging of the chest to rule out pulmonary embolism, CT angiogram revealed the findings summarized below; she was found to have a right hilar mass associated with mediastinal lymphadenopathy. She was evaluated by Dr. Flaherty of pulmonology and on 12/21/2018 underwent bronchoscopy, she was noted to have an endobronchial lesion involving the right middle lobe bronchus, biopsies were obtained. Results are pending at this time. The oncology service been asked to see her for presumptive diagnosis of primary lung malignancy. Review of Systems Constitutional: Denies anorexia, Denies fatigue, Denies fever(s), Denies lack of energy, Denies night sweats, Denies weakness, Denies weight gain Eyes: Denies change in vision, Denies double vision, Denies loss of vision, Denies requires corrective lenses Ears, Nose, Mouth, and Throat: Denies change in voice, Denies dental pain, Denies nasal obstruction, Denies poor balance, Denies sore throat, Denies throat swelling, Denies tongue swelling Cardiovascular: Reports chest pain, Reports shortness of breath, Reports shortness of breath with activity, Denies chest pain with activity, Denies excessive sweating Respiratory: Reports cough, Reports shortness of breath, Reports shortness of breath with activity, Denies change in phlegm color, Denies coughing up blood Gastrointestinal: Denies abdominal pain, Denies bloating, Denies bright, red blood in stools, Denies nausea, Denies pain with swallowing, Denies vomiting, Denies vomiting blood Genitourinary: Reports absent period Musculoskeletal: Denies abnormal walking, Denies back pain, Denies muscle cramps , Denies stiffness Skin/Breast: Denies breast pain, Denies breast lump, Denies rash, Denies skin pain, Denies yellowing of the skin Neurologic: Denies abnormal hearing, Denies dizziness, Denies fainting Psychiatric: Denies abnormal sleep pattern, Denies anxiety, Denies change in appetite Endocrine: Denies cold intolerance Hematologic/Lymphatic: Denies easy bleeding Allergic/Immunologic: Denies GI upset with certain foods PMFSH - History History Provided By: Patient - Medical History Medical History: Medical History (Last Updated 12/22/18 @ 08:36 by Antony Fleming MD) Cigarette nicotine dependence in remission Hyperlipidemia Hypothyroidism Pulmonary fibrosis - Surgical History Surgical History: Surgical History (Last Reviewed 12/22/18 @ 08:36 by Antony Fleming MD) H/O oophorectomy History of cholecystectomy History of foot surgery - Family History Family History: Family History (Last Updated 12/22/18 @ 08:37 by Antoyn Fleming MD) Sister Small cell lung cancer Other Carcinoma, lung Ovarian cancer - Social History I have reviewed the patient's Social History: Yes - Tobacco History Tobacco Use In Past 30 Days: No (quit long time ago) Smoking Status: Former smoker Tobacco Type: Cigarettes - Alcohol History How Often Do You Have a Drink Containing Alcohol: Monthly or less - Substance Use History Substance History: No History of Abuse - Travel History Recent Travel in the [place] Within the Last 8 Weeks: No Recent Travel Out of the Country Within the Last 8 Weeks: No - Immunization History Tetanus Immunization: >5 Years Medications and Allergies Active Medications: Active Medications Al Hydroxide/Mg Hydroxide (Milk Of Magnbear Liq) 30 ml PO Q12H PRN PRN Reason: Mild Constipation Albuterol (Duoneb Neb (Bill)) 1 ampul NEB Q6HR WHILE AWAKE NEB BILL Last Admin: 12/22/18 07:52 Dose: 1 ampul Albuterol (Albuterol Neb (Prn)) 2.5 mg NEB UNSCH PRN PRN Reason: SHORTNESS OF BREATH Stop: 12/22/18 12:42 Enalaprilat (Vasotec Inj) 2.5 mg IV.PUSH Q6H PRN PRN Reason: SBP>160, DBP>90 Guaifenesin (Mucinex Er) 600 mg PO BID [facility] Last Admin: 12/21/18 22:22 Dose: 600 mg Azithromycin 500 mg/ Sodium (Chloride) 250 mls @ 250 mls/hr IV.SIG Q24H [facility] Last Infusion: 12/21/18 23:23 Dose: Infused Ceftriaxone Sodium 1,000 mg/ (Sodium Chloride) 100 mls @ 200 mls/hr IV.SIG Q24H [facility] Last Infusion: 12/21/18 17:28 Dose: Infused Sodium Chloride (Ns Inj) 500 mls @ 30 mls/hr IV.SIG .Q10H [facility] Last Admin: 12/21/18 17:27 Dose: Not Given Levothyroxine Sodium (Synthroid) 125 mcg PO DAILY@0600 [facility] Last Admin: 12/22/18 06:49 Dose: 125 mcg Methylprednisolone Sodium Succinate (Solumedrol Inj) 40 mg IV.PUSH Q8HR [facility] Last Admin: 12/22/18 06:47 Dose: Not Given Miscellaneous Information (Mis Nursing Information) 1 each OTHER UNSCH PRN PRN Reason: SEE LABEL COMMENTS Stop: 12/22/18 14:13 Ondansetron HCl (Zofran Inj) 4 mg IV.PUSH Q6H PRN PRN Reason: NAUSEA OR VOMITING Sodium Chloride (Ns Flush) 2 ml IV.FLUSH BID [facility] Last Admin: 12/21/18 22:23 Dose: 2 ml Sodium Chloride (Ns Flush) 2 ml IV.FLUSH PRN PRN PRN Reason: FLUSH AFTER USING IV ACCESS Throat Lozenges (Chloraseptic [place]) 1 spray PO Q1H PRN PRN Reason: MOUTH/THROAT PAIN Tramadol HCl (Ultram) 100 mg PO Q6H PRN PRN Reason: Acute Pain 3-5 Last Admin: 12/21/18 22:30 Dose: 100 mg Allergies Allergy/AdvReac Type Severity Reaction Status Date / Time acetaminophen Allergy Severe Itching Verified 12/20/18 14:24 amoxicillin Allergy Severe Muscle Pain Verified 12/20/18 12:14 aspirin Allergy Severe Itching Verified 12/20/18 14:24 oxycodone Allergy Severe Itching Verified 12/20/18 14:24 Home Medications Medication Instructions Recorded Confirmed Type levothyroxine 125 mcg PO DAILY 12/20/18 12/20/18 History lovastatin mg PO DAILY 12/20/18 History multivitamin 1 cap PO QAM 12/20/18 12/20/18 History Physical Exam Vital signs: Vital Signs 12/21/18 08:42 12/21/18 12:58 12/21/18 13:15 Temperature 97.5 F L 97.4 F L Pulse Rate 76 122 H 113 H Respiratory Rate 16 32 H 26 H Blood Pressure 156/74 H 178/73 H 136/65 Pulse Oximetry 95 95 97 12/21/18 13:30 12/21/18 13:45 12/21/18 14:00 Temperature Pulse Rate 102 H 95 H 90 Respiratory Rate 22 18 20 Blood Pressure 162/82 H 150/70 H 134/62 Pulse Oximetry 96 97 95 12/21/18 14:15 12/21/18 14:30 12/21/18 17:53 Temperature 98.0 F 97.8 F Pulse Rate 85 86 65 Respiratory Rate 18 20 16 Blood Pressure 138/65 131/59 L 134/63 Pulse Oximetry 94 L 94 L 94 L 12/21/18 20:00 12/21/18 20:07 12/21/18 20:10 Temperature 97.5 F L Pulse Rate 82 78 Respiratory Rate 20 16 Blood Pressure 131/60 Pulse Oximetry 96 98 12/22/18 00:00 12/22/18 03:17 12/22/18 04:00 Temperature 97.9 F 97.5 F L Pulse Rate 74 81 Respiratory Rate 20 18 20 Blood Pressure 145/67 H 140/65 Pulse Oximetry 96 97 12/22/18 07:52 12/22/18 08:00 Temperature 97.3 F L Pulse Rate 71 70 Respiratory Rate 16 18 Blood Pressure 144/66 H Pulse Oximetry 95 92 L Intake & Output 12/21/18 12/22/18 12/22/18 18:59 06:59 18:59 Intake Total 100 / 100 1050 / 1050 Balance 100 / 100 1050 / 1050 Weight 88.6 kg Intake: IV 100 / 100 1050 / 1050 NS Inj 1,000 ML @ 70 mls/hr IV. 800 / 800 CONT .[id number] BILL Rx#: [id number] Azithromycin Inj 500 MG In NS 250 / 250 Inj 250 ML @ 250 mls/hr IV.SIG Q24H BILL Rx#:[id number] Rocephin Inj 1,000 MG In NS Inj 100 / 100 100 ML @ 200 mls/hr IV.SIG Q24H BILL Rx#:[id number] Narrative: General physical appearance: Patient is an elderly lady, she sitting up in bed, she appears to be no acute distress she has a pleasant disposition. She speaks to me in full sentences, she is awake, alert and oriented x3. HEENT: Head atraumatic no cephalic, conjunctivae are non-pale sclerae anicteric , EOMI, PERRLA. Neck examination: No palpable cervical or supraclavicular adenopathy. Respiratory exam: Good air movement bilaterally, she has expiratory wheezing, scattered rales and rhonchi. Coarse crepitus. Cardioascular exam: Regular rate and rhythm, S1-S2 no obvious murmurs rubs gallops. Good peripheral pulses, no peripheral edema. Abdominal exam: Protuberant abdomen, soft, nontender, nondistended no palpable hepatosplenomegaly. Lower extremity's no pretibial edema no calf tenderness. CHEESE COOK: No focal sensorimotor deficits. Musculoskeletal: Good muscle mass, tone and strength. 5 out of 5 upper and lower tremors. Psychiatric: Awake, alert, oriented, appropriate, understanding conversation held today. Skin examination: Nonfocal. Remainder of the exam was normal. Results - Labs CBC & Chem 7: 12/21/18 08:10 12/21/18 19:03 Labs: Laboratory Results - last 24 hr 12/21/18 12/21/18 12/21/18 08:10 08:10 08:10 WBC 3.9 L D RBC 4.31 Hgb 13.2 Hct 38.3 MCV 88.9 MCH 30.6 MCHC 34.4 RDW 13.3 Plt Count 201 MPV 8.8 Neut % (Auto) 86.8 H Lymph % (Auto) 10.9 [place] % (Auto) 2.3 Eos % (Auto) 0.0 Baso % (Auto) 0.0 Neut # (Auto) 3.4 Lymph # (Auto) 0.4 L [place] # (Auto) 0.1 Eos # (Auto) 0.0 Baso # (Auto) 0.0 WBC Differential . Differential Comment Auto diff final Sodium 118 L* Potassium 4.2 Chloride 85 L Carbon Dioxide 23.9 Anion Gap 9 BUN 7 Creatinine 0.45 L Estimated GFR Greater than 89 Random Glucose 147 H Hemoglobin A1c 6.1 H Calcium 8.5 Total Bilirubin 0.7 AST 16 ALT 25 Alkaline Phosphatase 99 Total Protein 7.7 Albumin 3.4 D 12/21/18 19:03 WBC RBC Hgb Hct MCV MCH MCHC RDW Plt Count MPV Neut % (Auto) Lymph % (Auto) [place] % (Auto) Eos % (Auto) Baso % (Auto) Neut # (Auto) Lymph # (Auto) [place] # (Auto) Eos # (Auto) Baso # (Auto) WBC Differential Differential Comment Sodium 121 L* Potassium 4.3 Chloride 86 L Carbon Dioxide 24.6 Anion Gap 10 BUN 9 Creatinine 0.58 Estimated GFR Greater than 89 Random Glucose 131 H Hemoglobin A1c Calcium 8.6 Total Bilirubin AST ALT Alkaline Phosphatase Total Protein Albumin - Imaging Impressions Chest X-Ray 12/21/18 12:42 CONCLUSION: Cardiomegaly with basilar dependent airspace disease in the lungs. No pneumothorax. Assessment and Plan - Plan Ms. Huerta is a very pleasant 78-year-old female who presents the hospital with progressive difficulty breathing with exertion, dry cough and sudden onset right scapular pain which occurred on 12/20/2018. Imaging studies indicate a right hilar mass associated with extensive mediastinal lymphadenopathy. Bronchoscopy performed on 12/21/2018 indicates a friable mass in the right middle lobe bronchus. Biopsies were obtained, pathology results are pending. Findings are highly concerning for primary lung malignancy associated pathologically enlarged mediastinal lymph nodes. Recommendations: 1. Await final pathology results. If the patient has a small cell carcinoma I will proceed with inpatient staging followed by inpatient systemic chemotherapy. If she has non-small cell carcinoma which is slower growing I would recommend discharge with outpatient staging with a PET CT scan followed by initiation of systemic therapy which would be stage appropriate. Thank you for asking me see this patient. Await pathology results. Additional recommendations to follow.
[2018-12-22 08:56] LABS: Sodium 119 meq/L (136-145)
[2018-12-22] MEDS: guaiFENesin 600 MG ER Tablet PO SCH ×2 (11:35→22:25)
--- NOTE | 2018-12-22 11:51 | P.PNIM ---
Subjective Interval history: Follow-up lung mass and hyponatremia. Patient has no complaints resolved chest and back pain. Denies headache or dizziness. Physical Exam Vital signs: Vital Signs 12/21/18 12:58 12/21/18 13:15 12/21/18 13:30 Temperature 97.4 F L Pulse Rate 122 H 113 H 102 H Respiratory Rate 32 H 26 H 22 Blood Pressure 178/73 H 136/65 162/82 H Pulse Oximetry 95 97 96 12/21/18 13:45 12/21/18 14:00 12/21/18 14:15 Temperature 98.0 F Pulse Rate 95 H 90 85 Respiratory Rate 18 20 18 Blood Pressure 150/70 H 134/62 138/65 Pulse Oximetry 97 95 94 L 12/21/18 14:30 12/21/18 17:53 12/21/18 20:00 Temperature 97.8 F 97.5 F L Pulse Rate 86 65 82 Respiratory Rate 20 16 20 Blood Pressure 131/59 L 134/63 131/60 Pulse Oximetry 94 L 94 L 96 12/21/18 20:07 12/21/18 20:10 12/22/18 00:00 Temperature 97.9 F Pulse Rate 78 74 Respiratory Rate 16 20 Blood Pressure 145/67 H Pulse Oximetry 98 96 12/22/18 03:17 12/22/18 04:00 12/22/18 07:52 Temperature 97.5 F L Pulse Rate 81 71 Respiratory Rate 18 20 16 Blood Pressure 140/65 Pulse Oximetry 97 95 12/22/18 08:00 Temperature 97.3 F L Pulse Rate 70 Respiratory Rate 18 Blood Pressure 144/66 H Pulse Oximetry 92 L Intake & Output 12/21/18 12/22/18 12/22/18 18:59 06:59 18:59 Intake Total 100 / 100 1050 / 1050 Balance 100 / 100 1050 / 1050 Weight 88.6 kg Intake: IV 100 / 100 1050 / 1050 NS Inj 1,000 ML @ 70 mls/hr IV. 800 / 800 CONT .[id number] DAGO Rx#: [id number] Azithromycin Inj 500 MG In NS 250 / 250 Inj 250 ML @ 250 mls/hr IV.SIG Q24H DAGO Rx#:[id number] Rocephin Inj 1,000 MG In NS Inj 100 / 100 100 ML @ 200 mls/hr IV.SIG Q24H DAGO Rx#:[id number] Other: # Voids 2 Narrative: GENERAL: NAD SKIN: Warm and dry. CARDIOVASCULAR: Regular rate and rhythm. RESPIRATORY: No accessory muscle use. Mild expiratory wheezes with GASTROINTESTINAL: Abdomen soft, non-tender, nondistended. MUSCULOSKELETAL: Extremities without clubbing, cyanosis, or edema. No obvious deformities. NEUROLOGICAL: Awake and alert. No obvious cranial nerve deficits. Motor grossly within normal limits. Five out of 5 muscle strength in the arms and legs. Normal speech. PSYCHIATRIC: Appropriate mood and affect; insight and judgment normal. Results Labs CBC & Chem 7: 12/21/18 08:10 12/22/18 07:28 Labs: Microbiology 12/21/18 12:37 Bronchial Washings - Right Upper Lobe Fungal Smear - Final No fungal elements seen 12/21/18 12:37 Bronchial - Right Upper Lobe Gram Stain - Final 12/21/18 02:00 Urine - Clean Catch Urine Legionella Antigen - Final Presumptive negative for Legionella pneumophila serogroup 1 antigen in urine, suggesting no recent or recurrent infection. Infection due to Legionella cannot be ruled out since other serogroups and species may cause disease, antigen may not be present in urine in early infection, and the level of antigen present in the urine may be below the detection limit of the test. Imaging Imaging: Impressions Chest X-Ray 12/21/18 12:42 CONCLUSION: Cardiomegaly with basilar dependent airspace disease in the lungs. No pneumothorax. Procedures Procedures: Bronchoscopy Assessment and Plan Plan 78-year-old female with Acute onset of shortness of breath Right-sided chest pain Right hilar mass on chest CT Right middle lobe bronchial friable mass status post biopsy highly concerning for primary lung malignancy. Also has elevated AFP and Ca 15-3. Oncology consulted, await pathology if positive for small cell carcinoma will proceed with inpatient staging followed by inpatient systemic chemotherapy. If non- small carcinoma, patient can be discharged with outpatient staging with a PET scan COPD exac History of pulmonary fibrosis Dyspnea Status post IV azithromycin and Rocephin continue antibiotics pending sputum and culture report DuoNeb as needed and schedule Ct Solu-Medrol schedule Pulmonary medicine ff Maintain oxygen saturation above 92% Hypochloremic hyponatremia. Asymptomatic. May be secondary to SIADH/right hilar mass. Fluid restriction Dc NS and monitor closely. Seizure precautions and neuro checks. Hyperglycemia A1c 6.1 Low TSH and high FT4, Hx hypothyroidism decrease synthroid DVT prophylaxis: Bilateral SCDs
[2018-12-22] MEDS: Sodium Chloride 1 GM Tablet PO SCH ×2 (12:19→22:25)
--- NOTE | 2018-12-22 19:38 | P.PN ---
Subjective Interval history: She is breathing easier. On O2 at 3 L nasal cannula. No hemoptysis up to bronchoscopy. Pathology report is suggestive of small cell carcinoma. Bronchial brushing cytology suspicious for malignancy. Physical Exam Vital signs: Vital Signs 12/21/18 20:00 12/21/18 20:07 12/21/18 20:10 Temperature 97.5 F L Pulse Rate 82 78 Respiratory Rate 20 16 Blood Pressure 131/60 Pulse Oximetry 96 98 12/22/18 00:00 12/22/18 03:17 12/22/18 04:00 Temperature 97.9 F 97.5 F L Pulse Rate 74 81 Respiratory Rate 20 18 20 Blood Pressure 145/67 H 140/65 Pulse Oximetry 96 97 12/22/18 07:52 12/22/18 08:00 12/22/18 12:00 Temperature 97.3 F L 96.6 F L Pulse Rate 71 70 81 Respiratory Rate 16 18 20 Blood Pressure 144/66 H 149/67 H Pulse Oximetry 95 92 L 95 12/22/18 14:01 12/22/18 16:00 Temperature 97.6 F Pulse Rate 80 79 Respiratory Rate 20 20 Blood Pressure 134/63 Pulse Oximetry 98 Intake & Output 12/22/18 12/22/18 12/23/18 06:59 18:59 06:59 Intake Total 1050 / 1050 Balance 1050 / 1050 Weight 88.6 kg Intake: IV 1050 / 1050 NS Inj 1,000 ML @ 70 mls/hr IV. 800 / 800 CONT .[id number] DAGO Rx#: [id number] Azithromycin Inj 500 MG In NS 250 / 250 Inj 250 ML @ 250 mls/hr IV.SIG Q24H DAGO Rx#:[id number] Other: # Voids 2 4 Narrative: General physical appearance: Patient is an elderly lady, she sitting up in bed, she appears to be no acute distress . she is awake, alert and oriented x3. HEENT: Head atraumatic no cephalic, conjunctivae are non-pale sclerae anicteric , EOMI, PERRLA. Neck examination: No palpable cervical or supraclavicular adenopathy. Respiratory exam: Decreased air movement right lung field, and she has expiratory wheezing, with scattered crackles. Cardiovascular exam: Regular rate and rhythm, S1-S2 no obvious murmurs rubs gallops. Good peripheral pulses, no peripheral edema. Abdominal exam: Protuberant abdomen, soft, nontender, nondistended no palpable hepatosplenomegaly. Lower extremity's no pretibial edema no calf tenderness. NIGHT TIME BABYSITTER: No focal sensorimotor deficits. Musculoskeletal: Good muscle mass, tone and strength. Psychiatric: Awake, alert, with normal affect. Results - Labs CBC & Chem 7: 12/21/18 08:10 12/22/18 07:28 Laboratory Results - last 24 hr 12/21/18 12/22/18 19:03 07:28 Sodium 121 L* 119 L* Potassium 4.3 4.3 Chloride 86 L 87 L Carbon Dioxide 24.6 23.9 Anion Gap 10 8 BUN 9 10 Creatinine 0.58 0.56 Estimated GFR Greater than 89 Greater than 89 Random Glucose 131 H 149 H Calcium 8.6 8.4 L Magnesium 2.1 Microbiology 12/21/18 12:37 Bronchial Washings - Right Upper Lobe Acid Fast Bacilli Smear - Final No acid fast bacilli seen 12/21/18 12:37 Bronchial - Right Upper Lobe Gram Stain - Final 12/21/18 12:37 Bronchial - Right Upper Lobe Bronchial Culture - Preliminary No growth in 24 hours 12/21/18 12:37 Bronchial Washings - Right Upper Lobe Fungal Smear - Final No fungal elements seen - Procedures Bronchoscopy Assessment and Plan - Assessment (1) Small cell lung cancer, overlapping sites of right lung Code(s): C34.81 - Malignant neoplasm of overlapping sites of right bronchus and lung Status: Acute (2) COPD (chronic obstructive pulmonary disease) Code(s): J44.9 - Chronic obstructive pulmonary disease, unspecified Status: Acute (3) Obstructive pneumonia Code(s): J18.9 - Pneumonia, unspecified organism Status: Acute (4) Hilar mass Code(s): R91.8 - Other nonspecific abnormal finding of lung field Status: Acute - Plan #1 O2 3 L nasal cannula to keep sats over 92 2. Oncology evaluation for lung cancer 3. DuoNeb nebs every 4 hours 4. Solu-Medrol 40 mg IV every 8 hours 5. Symbicort 160 x 4.5 mcg 2 puffs twice daily 6. Chest x-ray in a.m. 7. Continue IV Rocephin 1 g IV daily and Zithromax 500 mg daily
[2018-12-22] MEDS: Azithromycin Inj 500 MG in Sodium Chlor 0.9% Inj 250 ML IV.SIG SCH (22:24)
[2018-12-23] MEDS: Levothyroxine 125 MCG Tablet PO SCH (07:49)
[2018-12-23] MEDS: MethylPREDNISolone Sod Succinate Inj 40 MG/ML Vial IV.PUSH SCH ×2 (07:52→22:00)
[2018-12-23 08:07] LABS: Baso % (Auto) 0.1 % (0.0-2.0); Hematocrit 37.6 % (35.0-46.0); Lymph # (Auto) 0.6 th/mm3 (1.0-4.8); Lymph % (Auto) 10.7 % (9.0-44.0); Mean Corpuscular HGB Conc 34.5 % (32.0-36.0); Mean Corpuscular Hemoglobin 30.5 pg (27.0-34.0); Mean Corpuscular Volume 88.3 fL (80.0-100.0); Mean Platelet Volume 8.9 fL (7.0-11.0); Mono # (Auto) 0.2 th/mm3 (0.0-0.9); Mono % (Auto) 3.1 % (0.0-8.0); Neut # (Auto) 5.2 th/mm3 (1.8-7.7); Neut % (Auto) 86.1 % (16.0-70.0); Platelet Count 256 th/mm3 (150-450); Red Blood Count 4.25 mil/mm3 (4.00-5.30); Red Cell Distribution Width 12.7 % (11.6-17.2); White Blood Count 6.1 th/mm3 (4.0-11.0)
[2018-12-23 09:00] LABS: Anion Gap 11 meq/L (5-15); Blood Urea Nitrogen 9 mg/dL (7-18); Calcium 8.7 mg/dL (8.5-10.1); Carbon Dioxide 24.5 meq/L (21.0-32.0); Chloride 83 meq/L (98-107); Glomerular Filtration Rate Greater Than 89 mL/min (>89); Glucose,Random 160 mg/dL (74-106)
[2018-12-23 09:28] LABS: Sodium 118 meq/L (136-145)
[2018-12-23] MEDS: Sodium Chloride 1 GM Tablet PO SCH ×2 (09:54→22:14)
[2018-12-23] MEDS: guaiFENesin 600 MG ER Tablet PO SCH ×2 (09:54→22:02)
[2018-12-23] MEDS ORDERED: Benzonatate 100 MG Capsule PO PRN (10:17)
--- NOTE | 2018-12-23 10:33 | P.PNIM ---
Subjective Interval history: Follow-up of lung cancer. Patient made aware pathology positive for squamous cell cancer. Nursing to update oncology. Reports of not able to sleep last night because of constant coughing and mild frontal headache. Also has loose stools no other symptoms. Physical Exam Vital signs: Vital Signs 12/22/18 12:00 12/22/18 14:01 12/22/18 16:00 Temperature 96.6 F L 97.6 F Pulse Rate 81 80 79 Respiratory Rate 20 20 20 Blood Pressure 149/67 H 134/63 Pulse Oximetry 95 98 12/22/18 19:58 12/22/18 20:00 12/22/18 23:42 Temperature 97.6 F 97.9 F Pulse Rate 77 88 86 Respiratory Rate 16 16 12 Blood Pressure 170/76 H 154/78 H Pulse Oximetry 93 L 95 94 L 12/23/18 03:20 12/23/18 04:00 12/23/18 07:28 Temperature 97.7 F Pulse Rate 67 96 H 83 Respiratory Rate 16 12 16 Blood Pressure 172/62 H Pulse Oximetry 97 96 98 12/23/18 07:39 Temperature 97.4 F L Pulse Rate 85 Respiratory Rate 20 Blood Pressure 180/84 H Pulse Oximetry 97 Intake & Output 12/22/18 12/23/18 12/23/18 18:59 06:59 18:59 Intake Total 250 / 250 480 / 480 Balance 250 / 250 480 / 480 Weight 87.3 kg Intake: IV 250 / 250 Azithromycin Inj 500 MG In NS 250 / 250 Inj 250 ML @ 250 mls/hr IV.SIG Q24H DAGO Rx#:[id number] Oral 480 / 480 Other: # Voids 4 Date of Last Bowel Movement 12/22/18 Narrative: GENERAL: NAD SKIN: Warm and dry. CARDIOVASCULAR: Regular rate and rhythm. RESPIRATORY: No accessory muscle use. Improving wheezes GASTROINTESTINAL: Abdomen soft, non-tender, nondistended. MUSCULOSKELETAL: Extremities without clubbing, cyanosis, or edema. No obvious deformities. NEUROLOGICAL: Awake and alert. No obvious cranial nerve deficits. Motor grossly within normal limits. Five out of 5 muscle strength in the arms and legs. Normal speech. PSYCHIATRIC: Appropriate mood and affect; insight and judgment normal. Results Labs CBC & Chem 7: 12/23/18 07:30 12/23/18 07:30 Labs: Microbiology 12/21/18 12:37 Bronchial Washings - Right Upper Lobe Acid Fast Bacilli Smear - Final No acid fast bacilli seen 12/21/18 12:37 Bronchial - Right Upper Lobe Gram Stain - Final 12/21/18 12:37 Bronchial - Right Upper Lobe Bronchial Culture - Preliminary No growth in 24 hours 12/21/18 12:37 Bronchial Washings - Right Upper Lobe Fungal Smear - Final No fungal elements seen Procedures Procedures: Bronchoscopy Assessment and Plan (1) Small cell lung cancer, overlapping sites of right lung: Code(s): C34.81 - Malignant neoplasm of overlapping sites of right bronchus and lung Status: Acute (2) COPD (chronic obstructive pulmonary disease): Code(s): J44.9 - Chronic obstructive pulmonary disease, unspecified Status: Acute (3) Obstructive pneumonia: Code(s): J18.9 - Pneumonia, unspecified organism Status: Acute (4) Hilar mass: Code(s): R91.8 - Other nonspecific abnormal finding of lung field Status: Acute Plan 78-year-old female with Acute onset of shortness of breath Right-sided chest pain Right hilar mass on chest CT Right middle lobe bronchial friable mass status post biopsy highly concerning for primary lung malignancy. Also has elevated AFP and Ca 15-3. Positive for small cell carcinoma will proceed with inpatient staging followed by inpatient systemic chemotherapy. Alert oncology COPD exac. Improved History of pulmonary fibrosis Dyspnea Status post IV azithromycin and Rocephin switch to p.o. Zithromax x1 today then discontinue DuoNeb as needed and schedule Decrease Solu-Medrol schedule Pulmonary medicine ff Maintain oxygen saturation above 92% Hypochloremic hyponatremia. Complains of mild headache today. 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 Fluid restriction and sodium chloride tabs. 3% 150 mL at 15 cc an hour. Repeat BMP 9 PM today Dc NS and monitor closely. Seizure precautions and neuro checks. Hyperglycemia A1c 6.1 Low TSH and high FT4, Hx hypothyroidism decrease synthroid DVT prophylaxis: Bilateral SCDs _ (1) COPD (chronic obstructive pulmonary disease) Qualifiers: COPD type: Chronic bronchitis type: Emphysema type:
--- NOTE | 2018-12-23 10:44 | CT ---
EXAM DATE: 12/23/2018 10:42 AM EST AGE/SEX: 78 years / Female INDICATIONS: Cephalgia today. CLINICAL DATA: This is the patient's initial encounter. Patient reports that signs and symptoms have been present for 1 day and indicates a pain score of 7/10. MEDICAL/SURGICAL HISTORY: Hypothyroidism. Cholecystectomy. RADIATION DOSE: 34.46 CTDI (mGy) COMPARISON: No prior exams available for comparison. TECHNIQUE: CT of the head without contrast. Using automated exposure control and adjustment of the mA and/or kV according to patient size, radiation dose was kept as low as reasonably achievable to ob tain optimal diagnostic quality images. DICOM format image data is available electronically for revi ew and comparison. FINDINGS: Cerebrum: The ventricles are normal for age. No evidence of midline shift, mass lesion, hemorrhage or acute infarction. No extraaxial fluid collections are seen. Posterior Fossa: The cerebellum and brainstem are intact. The 4th ventricle is midline. The cerebe llopontine angle is unremarkable. Extracranial: The visualized portion of the orbits is intact. Skull: The calvaria is intact. No evidence of skull fracture. CONCLUSION: 1. Negative for acute process . . Electronically signed by: Con Singh MD Board Certified Radiologist 12/23/2018 10:43 AM EST
[2018-12-23] MEDS ORDERED: Azithromycin 250 MG Tablet PO ONE (12:00)
[2018-12-23] MEDS: Lactobacillus Acidophilus/L. Spores Tablet PO SCH ×2 (12:24→22:01)
--- NOTE | 2018-12-23 12:53 | P.PNONC ---
Subjective Interval history: Afebrile Having headache Anxious over new diagnosis of lung cancer Objective Vital Signs/Intake & Output: Vital Signs 12/22/18 14:01 12/22/18 16:00 12/22/18 19:58 Temperature 97.6 F Pulse Rate 80 79 77 Respiratory Rate 20 20 16 Blood Pressure 134/63 Pulse Oximetry 98 93 L 12/22/18 20:00 12/22/18 23:42 12/23/18 03:20 Temperature 97.6 F 97.9 F Pulse Rate 88 86 67 Respiratory Rate 16 12 16 Blood Pressure 170/76 H 154/78 H Pulse Oximetry 95 94 L 97 12/23/18 04:00 12/23/18 07:28 12/23/18 07:39 Temperature 97.7 F 97.4 F L Pulse Rate 96 H 83 85 Respiratory Rate 12 16 20 Blood Pressure 172/62 H 180/84 H Pulse Oximetry 96 98 97 12/23/18 12:00 Temperature 98 F Pulse Rate 89 Respiratory Rate 20 Blood Pressure 196/71 H Pulse Oximetry 97 Intake & Output 12/22/18 12/23/18 12/23/18 18:59 06:59 18:59 Intake Total 250 / 250 720 / 720 Balance 250 / 250 720 / 720 Weight 192 lb 7.417 oz Intake: IV 250 / 250 Azithromycin Inj 500 MG In NS 250 / 250 Inj 250 ML @ 250 mls/hr IV.SIG Q24H DAGO Rx#:[id number] Oral 720 / 720 Other: # Voids 4 1 Date of Last Bowel Movement 12/22/18 # Bowel Movements 1 Result Diagrams: 12/23/18 07:30 12/23/18 07:30 Laboratory Results: Laboratory Results - last 24 hr 12/23/18 12/23/18 07:30 07:30 WBC 6.1 RBC 4.25 Hgb 13.0 Hct 37.6 MCV 88.3 MCH 30.5 MCHC 34.5 RDW 12.7 Plt Count 256 MPV 8.9 Neut % (Auto) 86.1 H Lymph % (Auto) 10.7 Karnes % (Auto) 3.1 Eos % (Auto) 0.0 Baso % (Auto) 0.1 Neut # (Auto) 5.2 Lymph # (Auto) 0.6 L Karnes # (Auto) 0.2 Eos # (Auto) 0.0 Baso # (Auto) 0.0 WBC Differential . Differential Comment Auto diff final Sodium 118 L* Potassium 4.0 Chloride 83 L Carbon Dioxide 24.5 Anion Gap 11 BUN 9 Creatinine 0.58 Estimated GFR Greater than 89 Random Glucose 160 H Calcium 8.7 Magnesium 2.0 Culture Results: Microbiology 12/21/18 12:37 Gram Stain - Final Bronchial - Right Upper Lobe Bronchial Culture - Final No growth in 48 hours 12/21/18 12:37 Acid Fast Bacilli Smear - Final Bronchial Washings - Right Upper Lobe No acid fast bacilli seen 12/21/18 12:37 Fungal Smear - Final Bronchial Washings - Right Upper Lobe No fungal elements seen 12/21/18 02:00 Legionella Antigen - Final Urine - Clean Catch Urine Presumptive negative for Legionella pneumophila serogroup 1 antigen in urine, suggesting no recent or recurrent infection. Infection due to Legionella cannot be ruled out since other serogroups and species may cause disease, antigen may not be present in urine in early infection, and the level of antigen present in the urine may be below the detection limit of the test. Imaging Studies: Impressions Head CT 12/23/18 10:10 CONCLUSION: 1. Negative for acute process . . Medications: Active Medications Generic Name Dose Route Start Last Admin Trade Name Freq PRN Reason Stop Dose Admin Clonidine HCl 0.1 mg 12/23/18 06:11 12/23/18 11:07 Catapres PO 0.1 mg Q6H PRN Administration SEE LABEL COMMENTS Guaifenesin 600 mg 12/20/18 21:00 12/23/18 09:54 Mucinex Er PO 600 mg BID DAGO Administration Sodium Chloride 500 mls @ 30 mls/hr 12/21/18 08:00 12/21/18 17:27 Ns Inj IV.SIG Not Given .Q10H DAGO Lactobacillus Acidophilus 1 tab 12/23/18 13:00 12/23/18 12:24 Lactinex PO 1 tab TID DAGO Administration Levothyroxine Sodium 125 mcg 12/21/18 06:27 12/23/18 07:49 Synthroid PO 125 mcg DAILY@0600 DGAO Administration Sodium Chloride 2 ml 12/20/18 21:00 12/23/18 09:56 Ns Flush IV.FLUSH 2 ml BID DAGO Administration Sodium Chloride 1 gm 12/22/18 09:15 12/23/18 09:54 Sodium Chloride PO 1 gm BID DAGO Administration Tramadol HCl 100 mg 12/21/18 10:46 12/21/18 22:30 Ultram PO 100 mg Q6H PRN Administration Acute Pain 3-5 Objective Remarks: GENERAL: Well-nourished, well-developed patient. SKIN: Warm and dry. HEAD: Normocephalic. EYES: No scleral icterus. No injection or drainage. NECK: Supple, trachea midline. No JVD or lymphadenopathy. CARDIOVASCULAR: Regular rate and rhythm RESPIRATORY: Clear anteriorly. GASTROINTESTINAL: Abdomen soft, non-tender, nondistended. EXTREMITIES: No cyanosis, or edema. MUSCULOSKELETAL: Adequate muscle tone. NEUROLOGICAL: No obvious focal deficit. Awake, alert, and oriented x3. Assessment/Plan - Plan 78-year-old female who has a [id number] smoking history admitted with increased shortness of breath, headache and dry cough. CT imaging of the chest showed a right hilar mass with abnormal soft tissue extending directly into the mediastinum with some circumferential involvement of the left main pulmonary artery in the right main bronchus. 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 The results of biopsy were discussed with the patient, her and her 2 daughters in her room today. The plan is to start chemotherapy prior to discharge. Initially we will need to get a better grasp of her hyponatremia. I discussed with them I have ordered a transfer to the oncology floor. They had many questions today. I reviewed with them that prognosis depends on staging which we do not have yet. MRI brain with and without contrast as well as CT abdomen and pelvis will be ordered to complete staging. She is complaining of headache. CT brain without contrast is negative. The patient will be transferred to the oncology floor. Chemo teaching will be arranged. I anticipate that she will get carboplatin and etoposide once chemotherapy is initiated. Furthermore if she is found to have extensive stage disease she will also receive atezolizumab. I reviewed with them that this is 3 days in a row, every 3 weeks. 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 Her daughters are attempting to make arrangements for their dad. - Attending Statement The exam, history, and the medical decision-making described in the above note were completed with the assistance of the mid-level provider. I reviewed and agree with the findings presented. I attest that I had a [id number] encounter with the patient on the same day, and personally performed and documented my assessment and findings in the medical record. She is doing well and in no distress. The nurse practitioner explained in detail the reason for additional evaluation. The patient has IADH. She will be fluid restricted to 500 cc a day. I anticipate that she will begin chemotherapy at the beginning of next week. Will probably order an Infuse-a- Port for Tuesday. We do need to see a higher sodium before starting treatment. Above discussed with Dr. Fleming
[2018-12-23] MEDS ORDERED: Sodium Chloride 23.4% Inj 188 MEQ in Sod Chloride 0.9% Inj 1,000 ML IV.CONT SCH (13:00)
--- NOTE | 2018-12-23 20:31 | CT ---
EXAM DATE: 12/23/2018 8:21 PM EST AGE/SEX: 78 years / Female INDICATIONS: Evaluate for metastatic disease. Lung cancer. CLINICAL DATA: This is the patient's initial encounter. Patient reports that signs and symptoms have been present for 1 day and indicates a pain score of 0/10. MEDICAL/SURGICAL HISTORY: Carcinoma, lung. Hypothyroidism. Cholecystectomy. ORAL CONTRAST: No oral contrast ingested. RADIATION DOSE: 14.36 CTDI (mGy) COMPARISON: No prior exams available for comparison. TECHNIQUE: Multiple contiguous axial images were obtained through the abdomen and pelvis following b olus infusion of 60 ml Omnipaque 350 (iohexol) nonionic water-soluble contrast as a single exam dos e. No oral contrast ingested. Using automated exposure control and adjustment of the mA and/or kV ac cording to patient size, radiation dose was kept as low as reasonably achievable to obtain optimal di agnostic quality images. DICOM format image data is available electronically for review and comparis on. FINDINGS: Liver: The liver has a homogeneous density without space-occupying lesion. There is no dilation of th e biliary tree. Cholecystectomy. Spleen: Homogeneous density without enlargement. Pancreas: Unremarkable without mass or calcification. Kidneys: Normal in size and shape. No evidence of mass or hydronephrosis. Tiny 1 mm calcified stone upper pole collecting system right kidney. Adrenal Glands: Unremarkable. Aorta: The aorta and proximal iliac vessels are grossly unremarkable without aneurysmal dilation. Bowel/Mesentery: No dilated loops of small or large bowel. No evidence of free fluid. Abdominal Wall: Intact. Retroperitoneum: No evidence of adenopathy in the retrocrural, para-aortic, or deep pelvic regions. Bladder: Contours are smooth. Reproductive Organs: No abnormal masses or calcifications seen. Inguinal: The inguinal region is unremarkable without evidence of adenopathy. Bony Structures: Degenerative changes in the posterior elements of the lower lumbar spine.. CONCLUSION: 1. Negative CT of the abdomen/pelvis with contrast. Electronically signed by: Obinna Cartwright MD Board Certified Radiologist 12/23/2018 8:30 PM EST
[2018-12-23] MEDS ORDERED: Gadobutrol PF 10 MMOL/10 ML Vial (for RAD) IV.SIG ONE (20:32)
--- NOTE | 2018-12-23 20:51 | MR ---
EXAM DATE: 12/23/2018 8:43 PM EST AGE/SEX: 78 years / Female INDICATIONS: Metastatic disease. CLINICAL DATA: This is the patient's initial encounter. Patient reports that signs and symptoms have been present for 1 day and indicates a pain score of 0/10. MEDICAL/SURGICAL HISTORY: Carcinoma, lung. Cholecystectomy. Hysterectomy. [place] [facility] [place]. . TECHNIQUE: Multiplanar, multisequence examination of the brain was performed without and with 8 ml Ga davist (gadobutrol) contrast as a single exam dose. FINDINGS: Cerebrum: The ventricles are normal for age. No evidence of midline shift, mass lesion, hemorrhage or acute infarction. No extraaxial fluid collections are seen. The pituitary gland and suprasellar cistern are normal in configuration. White Matter: Multifocal areas of periventricular and subcortical white matter T2 prolongation. Some of the white matter changes are perpendicular to the long axis of the ventricles and could represent demyelinating disease. Posterior Fossa: The cerebellum and brainstem are intact. The 4th ventricle is midline. The cerebel lopontine angle is unremarkable. The cerebellar tonsils are normal in position. Diffusion Imaging: No focal areas of restricted diffusion are seen. No evidence of acute infarction . Extracranial: The visualized portions of the orbits and paranasal sinuses are unremarkable. Post Contrast: No abnormal areas of parenchymal or dural enhancement. No evidence of blood-brain ba rrier breakdown. CONCLUSION: 1. No abnormal enhancing masses or cerebral edema. 2. Prominent diffuse prolongation in the supratentorial white matter is somewhat atypical for ischem ic demyelination and suggests the possibility of a demyelinating process such as multiple sclerosis. No abnormal areas of enhancement in the white matter. Electronically signed by: Obinna Cartwright MD Board Certified Radiologist 12/23/2018 8:50 PM EST
[2018-12-23 22:45] LABS: Anion Gap 10 meq/L (5-15); Blood Urea Nitrogen 11 mg/dL (7-18); Calcium 8.8 mg/dL (8.5-10.1); Carbon Dioxide 24.2 meq/L (21.0-32.0); Chloride 84 meq/L (98-107); Glomerular Filtration Rate Greater Than 89 mL/min (>89); Glucose,Random 131 mg/dL (74-106); Potassium 4.1 meq/L (3.5-5.1)
[2018-12-23 23:19] LABS: Sodium 118 meq/L (136-145)
[2018-12-24] MEDS: Levothyroxine 125 MCG Tablet PO SCH (05:19)
[2018-12-24 06:45] LABS: Anion Gap 10 meq/L (5-15); Blood Urea Nitrogen 11 mg/dL (7-18); Calcium 8.1 mg/dL (8.5-10.1); Carbon Dioxide 25.5 meq/L (21.0-32.0); Chloride 85 meq/L (98-107); Glomerular Filtration Rate Greater Than 89 mL/min (>89); Glucose,Random 134 mg/dL (74-106); Potassium 4.1 meq/L (3.5-5.1)
[2018-12-24 07:05] LABS: Sodium 120 meq/L (136-145)
[2018-12-24] MEDS ORDERED: Naproxen 375 MG Tablet PO ONE (09:57)
--- NOTE | 2018-12-24 10:04 | P.PNONC ---
Subjective Interval history: Afebrile Still having headache Reports she takes Aleve at home that helps tremendously with her headaches Tramadol has not helped at all Objective Vital Signs/Intake & Output: Vital Signs 12/23/18 12:00 12/23/18 14:40 12/23/18 16:00 Temperature 98 F 97.9 F Pulse Rate 89 81 84 Respiratory Rate 20 16 20 Blood Pressure 196/71 H 141/65 H Pulse Oximetry 97 95 12/23/18 17:50 12/23/18 20:00 12/23/18 22:16 Temperature 97.8 F 98.0 F Pulse Rate 82 79 80 Respiratory Rate 16 16 16 Blood Pressure 171/96 H 169/69 H Pulse Oximetry 95 96 12/24/18 00:00 12/24/18 04:00 Temperature 97.0 F L 97.7 F Pulse Rate 90 88 Respiratory Rate 16 16 Blood Pressure 154/91 H 146/89 H Pulse Oximetry 97 93 L Intake & Output 12/23/18 12/24/18 12/24/18 18:59 06:59 18:59 Intake Total 960 / 960 390 / 390 Balance 960 / 960 390 / 390 Weight 194 lb 0.108 oz Intake: IV 150 / 150 Sodium Chloride 23.4% Inj 188 150 / 150 MEQ In NS Inj 1,000 ML @ 15 mls /hr IV.CONT .Q10H [facility] Rx#: [id number] Oral 960 / 960 240 / 240 Other: # Voids 1 2 Date of Last Bowel Movement 12/22/18 12/23/18 # Bowel Movements 1 Result Diagrams: 12/23/18 07:30 12/24/18 03:46 Laboratory Results: Laboratory Results - last 24 hr 12/23/18 12/23/18 12/24/18 13:45 21:54 03:46 Sodium 118 L* 120 L* Potassium 4.1 4.1 Chloride 84 L 85 L Carbon Dioxide 24.2 25.5 Anion Gap 10 10 BUN 11 11 Creatinine 0.53 0.39 L Estimated GFR Greater than 89 Greater than 89 Random Glucose 131 H 134 H Calcium 8.8 8.1 L Magnesium 2.0 Stl C.difficile DNA Amp Negative St C. diff Tox Epid 027 Negative Culture Results: Microbiology 12/21/18 12:37 Gram Stain - Final Bronchial - Right Upper Lobe Bronchial Culture - Final No growth in 48 hours 12/21/18 12:37 Acid Fast Bacilli Smear - Final Bronchial Washings - Right Upper Lobe No acid fast bacilli seen 12/21/18 12:37 Fungal Smear - Final Bronchial Washings - Right Upper Lobe No fungal elements seen 12/21/18 02:00 Legionella Antigen - Final Urine - Clean Catch Urine Presumptive negative for Legionella pneumophila serogroup 1 antigen in urine, suggesting no recent or recurrent infection. Infection due to Legionella cannot be ruled out since other serogroups and species may cause disease, antigen may not be present in urine in early infection, and the level of antigen present in the urine may be below the detection limit of the test. Imaging Studies: Impressions Abdomen/Pelvis CT 12/23/18 00:00 CONCLUSION: 1. Negative CT of the abdomen/pelvis with contrast. Head MRI 12/23/18 00:00 CONCLUSION: 1. No abnormal enhancing masses or cerebral edema. 2. Prominent diffuse prolongation in the supratentorial white matter is somewhat atypical for ischemic demyelination and suggests the possibility of a demyelinating process such as multiple sclerosis. No abnormal areas of enhancement in the white matter. Head CT 12/23/18 10:10 CONCLUSION: 1. Negative for acute process . . Medications: Active Medications Generic Name Dose Route Start Last Admin Trade Name Freq PRN Reason Stop Dose Admin Albuterol 1 ampul 12/23/18 14:00 12/24/18 07:14 Duoneb Neb (Bill) NEB 1 ampul QID NEB BILL Administration Calcium Carbonate 500 mg 12/23/18 22:50 12/24/18 00:42 Tums Chew CHEW 500 mg Q2H PRN Administration reflux/heartburn Clonidine HCl 0.1 mg 12/23/18 06:11 12/23/18 11:07 Catapres PO 0.1 mg Q6H PRN Administration SEE LABEL COMMENTS Guaifenesin 600 mg 12/20/18 21:00 12/23/18 22:02 Mucinex Er PO 600 mg BID BILL Administration Sodium Chloride 500 mls @ 30 mls/hr 12/21/18 08:00 12/21/18 17:27 Ns Inj IV.SIG Not Given .Q10H BILL Lactobacillus Acidophilus 1 tab 12/23/18 13:00 12/23/18 22:01 Lactinex PO 1 tab TID BILL Administration Levothyroxine Sodium 125 mcg 12/21/18 06:27 12/24/18 05:19 Synthroid PO 125 mcg DAILY@0600 BILL Administration Methylprednisolone Sodium Succinate 40 mg 12/23/18 21:00 12/23/18 22:00 Solumedrol Inj IV.PUSH 40 mg Q12HR BILL Administration Sodium Chloride 2 ml 12/20/18 21:00 12/23/18 22:02 Ns Flush IV.FLUSH Not Given BID BILL Sodium Chloride 1 gm 12/22/18 09:15 12/23/18 22:14 Sodium Chloride PO 1 gm BID BILL Administration Tramadol HCl 100 mg 12/21/18 10:46 12/23/18 22:01 Ultram PO 100 mg Q6H PRN Administration Acute Pain 3-5 Objective Remarks: GENERAL: Well-nourished, well-developed patient. SKIN: Warm and dry. HEAD: Normocephalic. EYES: No scleral icterus. No injection or drainage. NECK: Supple, trachea midline. No JVD or lymphadenopathy. CARDIOVASCULAR: Regular rate and rhythm RESPIRATORY: Clear anteriorly. GASTROINTESTINAL: Abdomen soft, non-tender, nondistended. EXTREMITIES: No cyanosis, or edema. MUSCULOSKELETAL: Adequate muscle tone. NEUROLOGICAL: No obvious focal deficit. Awake, alert, and oriented x3. Assessment/Plan - Plan 78-year-old female who has a 16-[id number]-pmdu smoking history admitted with increased shortness of breath, headache and dry cough. CT imaging of the chest showed a right hilar mass with abnormal soft tissue extending directly into the mediastinum with some circumferential involvement of the left main pulmonary artery in the right main bronchus. 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 Her sodium has increased only slightly today. She will remain on fluid restriction of 500 cc daily. Reviewed with the patient and her family that the MRI of the brain with and without contrast came back negative for metastatic disease. Interestingly this did show diffuse prolongation somewhat atypical for ischemic demyelinization suggesting the possibility of a demyelinating process such as multiple sclerosis. This was discussed with the patient's daughter who is a physician cardiovascular physician assistant. She was given a copy of the report. The patient herself does not show any signs of symptoms of MS. This can be followed outpatient with neurology. I will trial the patient with a one-time dose of naproxen for her headache. We discussed that this would not be used often as it will increase her risk of bleeding. I anticipate she will receive Plvdil-o-Cguw placement tomorrow. We will continue to correct her sodium. - Attending Statement The exam, history, and the medical decision-making described in the above note were completed with the assistance of the mid-level provider. I reviewed and agree with the findings presented. I attest that I had a [id number] encounter with the patient on the same day, and personally performed and documented my assessment and findings in the medical record. She is doing well. The sodium is still quite low at 120 and the fluid restriction will remain. The CAT scan of the abdomen and pelvis as well as the MRI of the brain shows no metastatic disease and therefore it appears that we are dealing with limited small cell lung cancer. I have ordered an Infuse-a- Port for tomorrow and she should be able to undergo treatment within the next several days.
[2018-12-24] MEDS: Lactobacillus Acidophilus/L. Spores Tablet PO SCH ×3 (10:09→18:08)
[2018-12-24] MEDS: guaiFENesin 600 MG ER Tablet PO SCH ×2 (10:10→21:27)
[2018-12-24] MEDS: Sodium Chloride 1 GM Tablet PO SCH ×2 (10:10→21:27)
[2018-12-24] MEDS: MethylPREDNISolone Sod Succinate Inj 40 MG/ML Vial IV.PUSH SCH ×2 (10:11→21:26)
--- NOTE | 2018-12-24 13:33 | P.PNIM ---
Subjective Interval history: The patient is in bed appears in not acute distress at this time. Says does not like the food. No fever or chills. Has cough with productive sputum, no blood in it. No wheezing. Complained of headaches in the morning, headaches are improved with tramadol. Physical Exam Vital signs: Vital Signs 12/23/18 14:40 12/23/18 16:00 12/23/18 17:50 Temperature 97.9 F 97.8 F Pulse Rate 81 84 82 Respiratory Rate 16 20 16 Blood Pressure 141/65 H 171/96 H Pulse Oximetry 95 95 12/23/18 20:00 12/23/18 22:16 12/24/18 00:00 Temperature 98.0 F 97.0 F L Pulse Rate 79 80 90 Respiratory Rate 16 16 16 Blood Pressure 169/69 H 154/91 H Pulse Oximetry 96 97 12/24/18 04:00 12/24/18 07:25 12/24/18 08:00 Temperature 97.7 F 98.0 F Pulse Rate 88 74 77 Respiratory Rate 16 20 18 Blood Pressure 146/89 H 171/83 H Pulse Oximetry 93 L 94 L 12/24/18 12:00 Temperature 97.9 F Pulse Rate 70 Respiratory Rate 16 Blood Pressure 156/80 H Pulse Oximetry 97 Intake & Output 12/23/18 12/24/18 12/24/18 18:59 06:59 18:59 Intake Total 960 / 960 390 / 390 Balance 960 / 960 390 / 390 Weight 88 kg Intake: IV 150 / 150 Sodium Chloride 23.4% Inj 188 150 / 150 MEQ In NS Inj 1,000 ML @ 15 mls /hr IV.CONT .Q10H [facility] Rx#: [id number] Oral 960 / 960 240 / 240 Other: # Voids 1 2 Date of Last Bowel Movement 12/22/18 12/23/18 # Bowel Movements 1 Narrative: GENERAL: 78-year-old female, well-nourished well-developed appears in NAD SKIN: Pale. Warm and dry. CARDIOVASCULAR: Regular rate and rhythm. RESPIRATORY: No accessory muscle use. Improving wheezes GASTROINTESTINAL: Abdomen soft, non-tender, nondistended. MUSCULOSKELETAL: Extremities without clubbing, cyanosis, or edema. No obvious deformities. NEUROLOGICAL: Awake and alert. No obvious cranial nerve deficits. Motor grossly within normal limits. Normal speech. PSYCHIATRIC: Appropriate mood and affect; insight and judgment normal. Results Labs CBC & Chem 7: 12/23/18 07:30 12/24/18 03:46 Labs: Microbiology 12/21/18 12:37 Bronchial - Right Upper Lobe Gram Stain - Final 12/21/18 12:37 Bronchial - Right Upper Lobe Bronchial Culture - Final No growth in 48 hours Imaging Imaging: Impressions Abdomen/Pelvis CT 12/23/18 00:00 CONCLUSION: 1. Negative CT of the abdomen/pelvis with contrast. Head MRI 12/23/18 00:00 CONCLUSION: 1. No abnormal enhancing masses or cerebral edema. 2. Prominent diffuse prolongation in the supratentorial white matter is somewhat atypical for ischemic demyelination and suggests the possibility of a demyelinating process such as multiple sclerosis. No abnormal areas of enhancement in the white matter. Procedures Procedures: Bronchoscopy Assessment and Plan Plan 78-year-old female with Acute onset of shortness of breath, improved Right-sided chest pain. Resolved Right hilar mass on chest CT Right middle lobe bronchial friable mass status post biopsy highly concerning for primary lung malignancy. Also has elevated AFP and Ca 15-3. Positive for small cell carcinoma will proceed with inpatient staging followed by inpatient systemic chemotherapy. Alert oncology COPD exac. Improved History of pulmonary fibrosis Dyspnea Status post IV azithromycin and Rocephin switch to p.o. Zithromax x1 today then discontinue DuoNeb as needed and schedule Decrease Solu-Medrol schedule Pulmonary medicine ff Maintain oxygen saturation above 92% Hypochloremic hyponatremia. Complains of mild headache today. 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 Fluid restriction and sodium chloride tabs. 3% 150 mL at 15 cc an hour. Repeat BMP 9 PM today Dc NS and monitor closely. Seizure precautions and neuro checks. Hyperglycemia A1c 6.1 Low TSH and high FT4, Hx hypothyroidism decrease synthroid DVT prophylaxis: Bilateral SCDs Discussed with the patient, nurse
[2018-12-25] MEDS: Levothyroxine 125 MCG Tablet PO SCH (05:09)
--- NOTE | 2018-12-25 08:26 | P.PNONC ---
Subjective Interval history: Patient seen and examined, vital signs, labs, medications, imaging studies, pathology results and events over the past 48 hours reviewed. Subjectively; patient reports feeling tired, she tells me she is not been able to sleep more than 2 hours at night for the past 2 nights. She has some headaches but these are not as severe as they were yesterday. She is now on the oncology unit, she is awaiting infusion port placement later today. Patient continues to have a cough producing scant phlegm. Objective Vital Signs/Intake & Output: Vital Signs 12/24/18 12:00 12/24/18 16:00 12/24/18 17:47 Temperature 97.9 F 98.0 F Pulse Rate 70 74 91 H Respiratory Rate 16 16 18 Blood Pressure 156/80 H 173/84 H Pulse Oximetry 97 96 12/24/18 20:00 12/24/18 20:23 12/25/18 00:00 Temperature 97.6 F 97.7 F Pulse Rate 86 92 H 75 Respiratory Rate 18 18 16 Blood Pressure 169/91 H 153/84 H Pulse Oximetry 94 L 97 98 12/25/18 04:00 Temperature 97.7 F Pulse Rate 75 Respiratory Rate 16 Blood Pressure 175/91 H Pulse Oximetry 96 Intake & Output 12/24/18 12/25/18 12/25/18 18:59 06:59 18:59 Intake Total 240 / 240 Balance 240 / 240 Weight 86 kg Intake: Oral 240 / 240 Other: # Voids 3 2 Date of Last Bowel Movement 12/24/18 12/24/18 # Bowel Movements 1 Result Diagrams: 12/23/18 07:30 12/24/18 03:46 Culture Results: Microbiology 12/21/18 12:37 Gram Stain - Final Bronchial - Right Upper Lobe Bronchial Culture - Final No growth in 48 hours 12/21/18 12:37 Acid Fast Bacilli Smear - Final Bronchial Washings - Right Upper Lobe No acid fast bacilli seen 12/21/18 12:37 Fungal Smear - Final Bronchial Washings - Right Upper Lobe No fungal elements seen Medications: Active Medications Generic Name Dose Route Start Last Admin Trade Name Freq PRN Reason Stop Dose Admin Albuterol 1 ampul 12/23/18 14:00 12/24/18 20:21 Duoneb Neb (Bill) NEB 1 ampul QID NEB BILL Administration Calcium Carbonate 500 mg 12/23/18 22:50 12/24/18 00:42 Tums Chew CHEW 500 mg Q2H PRN Administration reflux/heartburn Clonidine HCl 0.1 mg 12/23/18 06:11 12/23/18 11:07 Catapres PO 0.1 mg Q6H PRN Administration SEE LABEL COMMENTS Guaifenesin 600 mg 12/20/18 21:00 12/24/18 21:27 Mucinex Er PO 600 mg BID BILL Administration Sodium Chloride 500 mls @ 30 mls/hr 12/21/18 08:00 12/21/18 17:27 Ns Inj IV.SIG Not Given .Q10H BILL Lactobacillus Acidophilus 1 tab 12/23/18 13:00 12/24/18 18:08 Lactinex PO 1 tab TID BILL Administration Levothyroxine Sodium 125 mcg 12/21/18 06:27 12/25/18 05:09 Synthroid PO 125 mcg DAILY@0600 BILL Administration Methylprednisolone Sodium Succinate 40 mg 12/23/18 21:00 12/24/18 21:26 Solumedrol Inj IV.PUSH 40 mg Q12HR BILL Administration Pantoprazole Sodium 40 mg 12/24/18 14:00 12/24/18 15:32 Protonix PO 40 mg DAILY BILL Administration Sodium Chloride 2 ml 12/20/18 21:00 12/24/18 21:27 Ns Flush IV.FLUSH 2 ml BID BILL Administration Sodium Chloride 1 gm 12/22/18 09:15 12/24/18 21:27 Sodium Chloride PO 1 gm BID BILL Administration Tramadol HCl 100 mg 12/21/18 10:46 12/24/18 10:10 Ultram PO 100 mg Q6H PRN Administration Acute Pain 3-5 Objective Remarks: General physical appearance: Patient is an elderly lady, she sitting up in bed, she appears to be no acute distress she has a pleasant disposition. She speaks to me in full sentences, she is awake, alert and oriented x3. HEENT: Head atraumatic no cephalic, conjunctivae are non-pale sclerae anicteric , EOMI, PERRLA. Neck examination: On today's examination she has bilateral; right and left sided enlarged supraclavicular lymph nodes. Respiratory exam: Good air movement bilaterally, she has expiratory wheezing, scattered rales and rhonchi. Coarse crepitus. Cardioascular exam: Regular rate and rhythm, S1-S2 no obvious murmurs rubs gallops. Good peripheral pulses, no peripheral edema. Abdominal exam: Protuberant abdomen, soft, nontender, nondistended no palpable hepatosplenomegaly. Lower extremity's no pretibial edema no calf tenderness. SPIRITUAL CARE COORDINATOR: No focal sensorimotor deficits. Musculoskeletal: Good muscle mass, tone and strength. 5 out of 5 upper and lower tremors. Psychiatric: Awake, alert, oriented, appropriate, understanding conversation held today. Skin examination: Nonfocal. Remainder of the exam was normal. Assessment/Plan - Plan 78-year-old female who has a 25-zamj-volf smoking history admitted with increased shortness of breath, headache and dry cough. CT imaging of the chest showed a right hilar mass with abnormal soft tissue extending directly into the mediastinum with some circumferential involvement of the left main pulmonary artery in the right main bronchus. 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 Sodium levels marginally improved over the past weekend with fluid restriction alone. Recommendations: 1. 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 There is no evidence of brain metastases or intra-abdominal metastases on CT imaging/MRI imaging. She is a candidate for initiation of urgent inpatient systemic chemotherapy, chemotherapy teaching for carboplatin and etoposide has been delivered. The plan is for her to undergo infusion port placement later today followed by tentative initiation of systemic chemotherapy on 12/26/2018. Chemotherapy is delivered daily for 3 days. Following that systemic therapy will be initiated in the outpatient setting. I will also request radiation oncology evaluation so the patient can be transitioned to outpatient radiation oncology follow-up for eventual treatment planning. 2. 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 Continue fluid restriction, I will start the patient on tolvaptan 30 mg p.o. daily. I would like her sodium level to be greater than 125 prior to initiation of therapy. 3. Continue ongoing care.
[2018-12-25] MEDS ORDERED: Sodium Chlor 0.9% Inj 250 ML ONE (09:06)
[2018-12-25] MEDS ORDERED: fentaNYL Citrate Inj 250 MCG/5 ML Ampul ONE (09:07)
[2018-12-25] MEDS ORDERED: *Heparin Central Flush 100 UNIT/ML 5 ML Vial PERIprocedural ONLY IV.FLUSH ONE (09:09)
[2018-12-25] MEDS ORDERED: Lidocaine 1%/Epinephrine 1:100,000 Inj 20 ML Vial ONE (09:09)
[2018-12-25 09:22] LABS: Baso % (Auto) 0.1 % (0.0-2.0); Hematocrit 41.6 % (35.0-46.0); Hemoglobin 14.4 gm/dL (11.6-15.3); Lymph % (Auto) 16.6 % (9.0-44.0); Mean Corpuscular HGB Conc 34.6 % (32.0-36.0); Mean Corpuscular Volume 89.7 fL (80.0-100.0); Mean Platelet Volume 8.1 fL (7.0-11.0); Mono # (Auto) 0.7 th/mm3 (0.0-0.9); Mono % (Auto) 11.6 % (0.0-8.0); Neut # (Auto) 4.2 th/mm3 (1.8-7.7); Neut % (Auto) 71.7 % (16.0-70.0); Platelet Count 316 th/mm3 (150-450); Red Blood Count 4.65 mil/mm3 (4.00-5.30); Red Cell Distribution Width 13.5 % (11.6-17.2); White Blood Count 5.8 th/mm3 (4.0-11.0)
[2018-12-25 10:02] LABS: Albumin 4.1 g/dL (3.4-5.0); Anion Gap 8 meq/L (5-15); Aspartate Aminotransferase 19 U/L (15-37); Blood Urea Nitrogen 15 mg/dL (7-18); Carbon Dioxide 26.7 meq/L (21.0-32.0); Chloride 88 meq/L (98-107); Glomerular Filtration Rate 88 mL/min (>89); Glucose,Random 112 mg/dL (74-106); Potassium 4.1 meq/L (3.5-5.1)
[2018-12-25 10:10] LABS: Alanine Aminotransferase 35 U/L (10-53); Alkaline Phosphatase 88 U/L (45-117); Total Protein 7.6 g/dL (6.4-8.2)
[2018-12-25 10:24] LABS: Sodium 123 meq/L (136-145)
--- NOTE | 2018-12-25 10:25 | P.PNIM ---
Subjective Interval history: The patient is in bed she appears in no distress at this time. No fever or chills no nausea or vomiting. No cough. Physical Exam Vital signs: Vital Signs 12/24/18 12:00 12/24/18 16:00 12/24/18 17:47 Temperature 97.9 F 98.0 F Pulse Rate 70 74 91 H Respiratory Rate 16 16 18 Blood Pressure 156/80 H 173/84 H Pulse Oximetry 97 96 12/24/18 20:00 12/24/18 20:23 12/25/18 00:00 Temperature 97.6 F 97.7 F Pulse Rate 86 92 H 75 Respiratory Rate 18 18 16 Blood Pressure 169/91 H 153/84 H Pulse Oximetry 94 L 97 98 12/25/18 04:00 12/25/18 08:27 12/25/18 08:29 Temperature 97.7 F Pulse Rate 75 72 Respiratory Rate 16 16 Blood Pressure 175/91 H Pulse Oximetry 96 94 L 12/25/18 08:51 Temperature 98.1 F Pulse Rate 73 Respiratory Rate 16 Blood Pressure 158/94 H Pulse Oximetry 96 Intake & Output 12/24/18 12/25/18 12/25/18 18:59 06:59 18:59 Intake Total 240 / 240 Balance 240 / 240 Weight 86 kg Intake: Oral 240 / 240 Other: # Voids 3 2 Date of Last Bowel Movement 12/24/18 12/24/18 12/25/18 # Bowel Movements 1 Narrative: GENERAL: 78-year-old female, well-nourished well-developed appears in NAD SKIN: Pale. Warm and dry. CARDIOVASCULAR: Regular rate and rhythm. RESPIRATORY: No accessory muscle use. Improving wheezes GASTROINTESTINAL: Abdomen soft, non-tender, nondistended. MUSCULOSKELETAL: Extremities without clubbing, cyanosis, or edema. No obvious deformities. NEUROLOGICAL: Awake and alert. No obvious cranial nerve deficits. Motor grossly within normal limits. Normal speech. PSYCHIATRIC: Appropriate mood and affect; insight and judgment normal. Results Labs CBC & Chem 7: 12/25/18 08:34 12/25/18 08:34 Procedures Procedures: Bronchoscopy Assessment and Plan Plan 78-year-old female with Acute onset of shortness of breath, improved Right-sided chest pain. Resolved Right hilar mass on chest CT Right middle lobe bronchial friable mass status post biopsy highly concerning for primary lung malignancy. Also has elevated AFP and Ca 15-3. Positive for small cell carcinoma will proceed with inpatient staging followed by inpatient systemic chemotherapy. Alert oncology COPD exac. Improved History of pulmonary fibrosis Dyspnea Status post IV azithromycin and Rocephin switch to p.o. Zithromax x1 today then discontinue DuoNeb as needed and schedule Decrease Solu-Medrol schedule Pulmonary medicine ff Maintain oxygen saturation above 92% Hypochloremic hyponatremia. Complains of mild headache today. 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 Fluid restriction and sodium chloride tabs. 3% 150 mL at 15 cc an hour. Repeat BMP 9 PM today Dc NS and monitor closely. Seizure precautions and neuro checks. Hyperglycemia A1c 6.1 Low TSH and high FT4, Hx hypothyroidism decrease synthroid DVT prophylaxis: Bilateral SCDs Discussed with the patient, nurse
--- NOTE | 2018-12-25 10:29 | P.RAD ---
Post Procedure Progress Note - Procedure Information Procedure Date: 12/25/18 Supervising Radiologist: Noam Barahona MD Estimated blood loss (mL): 5 Anesthesia: Conscious Sedation - Plan of Activity Patient to Unit: [facility] Patient Condition: Good See PACS Report for procedural detail/treatment.
--- NOTE | 2018-12-25 10:47 | IR ---
EXAM DATE: 12/25/2018 10:26 AM EST AGE/SEX: 78 years / Female INDICATIONS: Patient presents with diagnosis of Small Cell Lung Cancer in need of a right sided Infu sa-Port placement for Chemotherapy. CLINICAL DATA: This is the patient's initial encounter. Patient reports that signs and symptoms have been present for 4 - 6 days and indicates a pain score of 0/10. MEDICAL/SURGICAL HISTORY: Hypercholesterolemia. Hypothyroidism. Pulmonary Fibrosis. Cholecyst ectomy. Oophorectomy, Foot surgery. COMPARISON: [facility], CHEST 1V SINGLE AP, 12/21/2018. . FLUORO TIME (min): 0:09 IMAGE SERIES: 2 RADIATION DOSE: 1 mGY CAK SEDATION TIME (min): 30 MEDICATION(S): 2.5 mg midazolam (Versed) IV 125 mcg fentanyl (Sublimaze) IV Vancomycin within 2 hrs of procedure, Ancef (or alternative) within 1 hr of procedure. DEVICE(S): Right 8 Fr. Xcela Plus Port . . PROCEDURE : 1. Continuous pulse oximetry and EKG monitoring. 2. Intravenous conscious sedation. 3. Ultrasound guidance for venous access. 4. Fluoroscopic guided implantable central venous port placement. The patient was placed supine. The neck was prepped in sterile fashion. Full sterile technique was u sed, including cap, mask, sterile gloves and gown, and a large sterile sheet. Hand hygiene and 2% ch lorhexidine Betadine was utilized per protocol for cutaneous antisepsis with appropriate dry time for site. Sterile gel and sterile probe cover were utilized for ultrasound guidance. The skin and sub cutaneous tissues were infiltrated with local anesthetic solution. Under direct ultrasound guidance, central venous access was accomplished in the targeted vessel. The ultrasound images depicting access guidance were stored and saved to PACS for permanent record. A s ubcutaneous pocket was created using blunt dissection. The port was introduced to the pocket. The c atheter tubing was fed through a subcutaneous tunnel to the venotomy site. The catheter tubing was c ut to a suitable length and then was introduced through a valved Peel-Away sheath and positioned with catheter tubing tip at the cavo-atrial junction level. The pocket incision was closed with subcutic ular Vicryl suture. Steri-Strips were applied. The port was flushed and locked with heparin solutio n per protocol. Sterile dressing was applied to the site. The patient tolerated the procedure well. Conscious sedation was performed with the prescribed dosages and duration as above in the presence of an independent trained radiology nurse to assist in the monitoring of the patient. EKG and oximetry remained stable throughout the procedure. The patient tolerated the procedure well and there were no complications. The patient was sent to post anesthesia recovery in stable condition. CONCLUSION: 1. Uncomplicated ultrasound and fluoroscopic guided implanted central venous port catheter placement as described in detail above. An 8 Egyptian Power port was placed. Electronically signed by: Noam Barahona MD Board Certified Radiologist 12/25/2018 10:45 AM TORI [facility]
[2018-12-25] MEDS: guaiFENesin 600 MG ER Tablet PO SCH ×2 (11:46→20:58)
[2018-12-25] MEDS: Lactobacillus Acidophilus/L. Spores Tablet PO SCH ×3 (11:46→18:01)
[2018-12-25] MEDS: MethylPREDNISolone Sod Succinate Inj 40 MG/ML Vial IV.PUSH SCH (11:47)
[2018-12-25] MEDS: Sodium Chloride 1 GM Tablet PO SCH ×2 (11:47→20:58)
--- NOTE | 2018-12-25 12:25 | P.PN ---
Subjective Interval history: She is breathing easier. On O2 at 3 L. 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 Further imaging studies in progress. Physical Exam Vital signs: Vital Signs 12/24/18 16:00 12/24/18 17:47 12/24/18 20:00 Temperature 98.0 F 97.6 F Pulse Rate 74 91 H 86 Respiratory Rate 16 18 18 Blood Pressure 173/84 H 169/91 H Pulse Oximetry 96 94 L 12/24/18 20:23 12/25/18 00:00 12/25/18 04:00 Temperature 97.7 F 97.7 F Pulse Rate 92 H 75 75 Respiratory Rate 18 16 16 Blood Pressure 153/84 H 175/91 H Pulse Oximetry 97 98 96 12/25/18 08:27 12/25/18 08:29 12/25/18 08:51 Temperature 98.1 F Pulse Rate 72 73 Respiratory Rate 16 16 Blood Pressure 158/94 H Pulse Oximetry 94 L 96 12/25/18 10:10 12/25/18 10:25 12/25/18 10:55 Temperature 98.1 F Pulse Rate 73 75 75 Respiratory Rate 18 18 16 Blood Pressure 162/73 H 159/74 H 154/77 H Pulse Oximetry 90 L 95 12/25/18 11:25 12/25/18 11:42 12/25/18 12:19 Temperature 97.8 F Pulse Rate 76 87 76 Respiratory Rate 18 16 16 Blood Pressure 157/81 H 167/83 H Pulse Oximetry 96 94 L Intake & Output 12/24/18 12/25/18 12/25/18 18:59 06:59 18:59 Intake Total 240 / 240 Balance 240 / 240 Weight 86 kg Intake: Oral 240 / 240 Other: # Voids 3 2 Date of Last Bowel Movement 12/24/18 12/24/18 12/25/18 # Bowel Movements 1 Narrative: General physical appearance: Patient is an elderly lady, she sitting up in bed, she appears to be no acute distress . she is awake, alert and oriented x3. HEENT: Head atraumatic no cephalic, conjunctivae are non-pale sclerae anicteric , EOMI, PERRLA. Neck examination: No palpable cervical or supraclavicular adenopathy. Respiratory exam: Decreased air movement right lung field, and she has expiratory wheezing, with scattered crackles. Cardiovascular exam: Regular rate and rhythm, S1-S2 no obvious murmurs rubs gallops. no peripheral edema. Abdominal exam: Protuberant abdomen, soft, nontender, nondistended no palpable hepatosplenomegaly. Lower extremity's no pretibial edema no calf tenderness. 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 Musculoskeletal: Good muscle mass, tone and strength. Psychiatric: Awake, alert, with normal affect. Results - Labs CBC & Chem 7: 12/25/18 08:34 12/26/18 09:33 Laboratory Results - last 24 hr 12/25/18 12/25/18 12/25/18 08:34 08:34 09:00 WBC 5.8 RBC 4.65 Hgb 14.4 Hct 41.6 MCV 89.7 MCH 31.0 MCHC 34.6 RDW 13.5 Plt Count 316 MPV 8.1 Neut % (Auto) 71.7 H Lymph % (Auto) 16.6 [place] % (Auto) 11.6 H Eos % (Auto) 0.0 Baso % (Auto) 0.1 Neut # (Auto) 4.2 Lymph # (Auto) 1.0 [place] # (Auto) 0.7 Eos # (Auto) 0.0 Baso # (Auto) 0.0 WBC Differential . Differential Comment Auto diff final Sodium 123 L* Potassium 4.1 Chloride 88 L Carbon Dioxide 26.7 Anion Gap 8 BUN 15 Creatinine 0.65 Estimated GFR 88 L Random Glucose 112 H Calcium 9.0 D Total Bilirubin 0.4 AST 19 ALT 35 Alkaline Phosphatase 88 Total Protein 7.6 Albumin 4.1 Urine Osmolality 592 Ur Random Sodium 12/25/18 09:00 WBC RBC Hgb Hct MCV MCH MCHC RDW Plt Count MPV Neut % (Auto) Lymph % (Auto) [place] % (Auto) Eos % (Auto) Baso % (Auto) Neut # (Auto) Lymph # (Auto) [place] # (Auto) Eos # (Auto) Baso # (Auto) WBC Differential Differential Comment Sodium Potassium Chloride Carbon Dioxide Anion Gap BUN Creatinine Estimated GFR Random Glucose Calcium Total Bilirubin AST ALT Alkaline Phosphatase Total Protein Albumin Urine Osmolality Ur Random Sodium 102 - Imaging Impressions Port Line Insertion 12/25/18 00:00 CONCLUSION: 1. Uncomplicated ultrasound and fluoroscopic guided implanted central venous port catheter placement as described in detail above. An 8 [place] Power port was placed. - Procedures Bronchoscopy Assessment and Plan - Assessment (1) Small cell lung cancer, overlapping sites of right lung Code(s): C34.81 - Malignant neoplasm of overlapping sites of right bronchus and lung Status: Acute (2) COPD (chronic obstructive pulmonary disease) Code(s): J44.9 - Chronic obstructive pulmonary disease, unspecified Status: Acute (3) Obstructive pneumonia Code(s): J18.9 - Pneumonia, unspecified organism Status: Acute (4) Hilar mass Code(s): R91.8 - Other nonspecific abnormal finding of lung field Status: Acute - Plan #1 O2 3 L nasal cannula to keep sats over 92 2. Oncology for chemotherapy and radiation 3. DuoNeb nebs every 4 hours 4. DC Solu-Medrol 5. Symbicort 160 x 4.5 mcg 2 puffs twice daily 6. Chest x-ray in a.m. 7. DC IV Rocephin
--- NOTE | 2018-12-25 19:06 | P.CON ---
History of Present Illness Service: radiation oncology Requesting Physician: Antony Fleming Primary Care Provider: Belgica Méndez MD Chief Complaint: Difficulty breathing, cough, right sided posterior chest pain. History of Present Illness: recent diagnosis small cell lung cancer limited stage. to start chemotherapy shortly. [facility] - History History Provided By: Patient - Medical History Medical History: Medical History (Last Updated 12/22/18 @ 08:36 by Antony Fleming MD) Cigarette nicotine dependence in remission Hyperlipidemia Hypothyroidism Pulmonary fibrosis - Surgical History Surgical History: Surgical History (Last Reviewed 12/22/18 @ 08:36 by Antony Fleming MD) H/O oophorectomy History of cholecystectomy History of foot surgery - Family History Family History: Family History (Last Updated 12/22/18 @ 08:37 by Antony Fleming MD) Sister Small cell lung cancer Other Carcinoma, lung Ovarian cancer - Tobacco History Tobacco Use In Past 30 Days: No (quit long time ago) Smoking Status: Former smoker Tobacco Type: Cigarettes - Alcohol History How Often Do You Have a Drink Containing Alcohol: Monthly or less - Substance Use History Substance History: No History of Abuse - Travel History Recent Travel in the [place] Within the Last 8 Weeks: No Recent Travel Out of the Country Within the Last 8 Weeks: No - Immunization History Tetanus Immunization: >5 Years Medications and Allergies Active Medications: Active Medications Al Hydroxide/Mg Hydroxide (Milk Of Joaquín Singh) 30 ml PO Q12H PRN PRN Reason: Mild Constipation Albuterol (Albuterol Neb (Prn)) 2.5 mg NEB Q2HR NEB PRN PRN Reason: DYSPNEA Albuterol (Duoneb Neb (Bill)) 1 ampul NEB QID NEB BILL Last Admin: 12/25/18 16:10 Dose: 1 ampul Benzonatate (Tessalon Perles) 200 mg PO Q8H PRN PRN Reason: COUGH Calcium Carbonate (Tums Chew) 500 mg CHEW Q2H PRN PRN Reason: reflux/heartburn Last Admin: 12/24/18 00:42 Dose: 500 mg Clonidine HCl (Catapres) 0.1 mg PO Q6H PRN PRN Reason: SEE LABEL COMMENTS Last Admin: 12/23/18 11:07 Dose: 0.1 mg Enalaprilat (Vasotec Inj) 1.25 mg IV.PUSH Q6H PRN PRN Reason: SEE LABEL COMMENTS Guaifenesin (Mucinex Er) 600 mg PO BID [facility] Last Admin: 12/25/18 11:46 Dose: 600 mg Sodium Chloride (Ns Inj) 500 mls @ 30 mls/hr IV.SIG .Q10H [facility] Last Admin: 12/21/18 17:27 Dose: Not Given Lactobacillus Acidophilus (Lactinex) 1 tab PO TID [facility] Last Admin: 12/25/18 18:01 Dose: Not Given Levothyroxine Sodium (Synthroid) 125 mcg PO DAILY@0600 [facility] Last Admin: 12/25/18 05:09 Dose: 125 mcg Ondansetron HCl (Zofran Inj) 4 mg IV.PUSH Q6H PRN PRN Reason: NAUSEA OR VOMITING Pantoprazole Sodium (Protonix) 40 mg PO DAILY [facility] Last Admin: 12/25/18 11:47 Dose: 40 mg Prednisone (Deltasone) 10 mg PO BID [facility] Stop: 12/31/18 23:59 Sodium Chloride (Ns Flush) 2 ml IV.FLUSH BID [facility] Last Admin: 12/25/18 11:48 Dose: 2 ml Sodium Chloride (Ns Flush) 2 ml IV.FLUSH PRN PRN PRN Reason: FLUSH AFTER USING IV ACCESS Sodium Chloride (Sodium Chloride) 1 gm PO BID [facility] Last Admin: 12/25/18 11:47 Dose: 1 gm Throat Lozenges (Chloraseptic [place]) 1 spray PO Q1H PRN PRN Reason: MOUTH/THROAT PAIN Tolvaptan (Samsca) 30 mg PO DAILY [facility] Last Admin: 12/25/18 11:47 Dose: 30 mg Tramadol HCl (Ultram) 100 mg PO Q6H PRN PRN Reason: Acute Pain 3-5 Last Admin: 12/24/18 10:10 Dose: 100 mg Allergies Allergy/AdvReac Type Severity Reaction Status Date / Time acetaminophen Allergy Severe Itching Verified 12/20/18 14:24 amoxicillin Allergy Severe Muscle Pain Verified 12/20/18 12:14 aspirin Allergy Severe Itching Verified 12/20/18 14:24 oxycodone Allergy Severe Itching Verified 12/20/18 14:24 Home Medications Medication Instructions Recorded Confirmed Type levothyroxine 125 mcg PO DAILY 12/20/18 12/20/18 History lovastatin mg PO DAILY 12/20/18 History multivitamin 1 cap PO QAM 12/20/18 12/20/18 History Physical Exam Vital signs: Vital Signs 12/24/18 20:00 12/24/18 20:23 12/25/18 00:00 Temperature 97.6 F 97.7 F Pulse Rate 86 92 H 75 Respiratory Rate 18 18 16 Blood Pressure 169/91 H 153/84 H Pulse Oximetry 94 L 97 98 12/25/18 04:00 12/25/18 08:27 12/25/18 08:29 Temperature 97.7 F Pulse Rate 75 72 Respiratory Rate 16 16 Blood Pressure 175/91 H Pulse Oximetry 96 94 L 12/25/18 08:51 12/25/18 10:10 12/25/18 10:25 Temperature 98.1 F 98.1 F Pulse Rate 73 73 75 Respiratory Rate 16 18 18 Blood Pressure 158/94 H 162/73 H 159/74 H Pulse Oximetry 96 90 L 95 12/25/18 10:55 12/25/18 11:25 12/25/18 11:42 Temperature 97.8 F Pulse Rate 75 76 87 Respiratory Rate 16 18 16 Blood Pressure 154/77 H 157/81 H 167/83 H Pulse Oximetry 96 94 L 12/25/18 12:19 12/25/18 15:44 12/25/18 15:49 Temperature 98.3 F Pulse Rate 76 90 Respiratory Rate 16 16 Blood Pressure 171/93 H Pulse Oximetry 96 96 12/25/18 16:10 Temperature Pulse Rate 88 Respiratory Rate 18 Blood Pressure Pulse Oximetry Intake & Output 12/25/18 12/25/18 12/26/18 06:59 18:59 06:59 Weight 86 kg Other: # Voids 2 Date of Last Bowel Movement 12/24/18 12/25/18 # Bowel Movements 6 Results - Labs CBC & Chem 7: 12/25/18 08:34 12/25/18 08:34 Labs: Laboratory Results - last 24 hr 12/25/18 12/25/18 12/25/18 08:34 08:34 09:00 WBC 5.8 RBC 4.65 Hgb 14.4 Hct 41.6 MCV 89.7 MCH 31.0 MCHC 34.6 RDW 13.5 Plt Count 316 MPV 8.1 Neut % (Auto) 71.7 H Lymph % (Auto) 16.6 [place] % (Auto) 11.6 H Eos % (Auto) 0.0 Baso % (Auto) 0.1 Neut # (Auto) 4.2 Lymph # (Auto) 1.0 [place] # (Auto) 0.7 Eos # (Auto) 0.0 Baso # (Auto) 0.0 WBC Differential . Differential Comment Auto diff final Sodium 123 L* Potassium 4.1 Chloride 88 L Carbon Dioxide 26.7 Anion Gap 8 BUN 15 Creatinine 0.65 Estimated GFR 88 L Random Glucose 112 H Calcium 9.0 D Total Bilirubin 0.4 AST 19 ALT 35 Alkaline Phosphatase 88 Total Protein 7.6 Albumin 4.1 Urine Osmolality 592 Ur Random Sodium 12/25/18 09:00 WBC RBC Hgb Hct MCV MCH MCHC RDW Plt Count MPV Neut % (Auto) Lymph % (Auto) [place] % (Auto) Eos % (Auto) Baso % (Auto) Neut # (Auto) Lymph # (Auto) [place] # (Auto) Eos # (Auto) Baso # (Auto) WBC Differential Differential Comment Sodium Potassium Chloride Carbon Dioxide Anion Gap BUN Creatinine Estimated GFR Random Glucose Calcium Total Bilirubin AST ALT Alkaline Phosphatase Total Protein Albumin Urine Osmolality Ur Random Sodium 102 - Imaging Impressions Port Line Insertion 12/25/18 00:00 CONCLUSION: 1. Uncomplicated ultrasound and fluoroscopic guided implanted central venous port catheter placement as described in detail above. An 8 [place] Power port was placed. Assessment and Plan - Plan we discussed xrt and chemotherapy combined plan to add xrt around cycle 2 or so of chemo. we will plan re-eval one week or so. discussed with dr fleming. I reviewed cta images.
[2018-12-25] MEDS: predniSONE 10 MG Tablet PO SCH (20:58)
[2018-12-26] MEDS: Levothyroxine 125 MCG Tablet PO SCH (06:28)
--- NOTE | 2018-12-26 07:56 | P.PNONC ---
Subjective Interval history: Patient seen and examined, vital signs, labs, medications and events of the past 24 hours reviewed. Patient underwent uncomplicated placement of a right-sided infusion port yesterday. She was initiated on tolvaptan yesterday for management of SIADH also. Sodium level dated 12/25/2018 prior to initiation of tolvaptan was 123. Subjectively; patient denies acute complaints, she is tearful this morning, she tells me she is upset at her family because they have been treating her like a "invalid ". She insists she feels well enough to get up and get around and insists on not accepting any assistance. She is prepared to initiate systemic chemotherapy. She denies fevers, chills, overt bleeding, difficulty breathing. She does have a cough which causes abdominal pain due to muscle strain. Objective Vital Signs/Intake & Output: Vital Signs 12/25/18 08:27 12/25/18 08:29 12/25/18 08:51 Temperature 98.1 F Pulse Rate 72 73 Respiratory Rate 16 16 Blood Pressure 158/94 H Pulse Oximetry 94 L 96 12/25/18 10:10 12/25/18 10:25 12/25/18 10:55 Temperature 98.1 F Pulse Rate 73 75 75 Respiratory Rate 18 18 16 Blood Pressure 162/73 H 159/74 H 154/77 H Pulse Oximetry 90 L 95 12/25/18 11:25 12/25/18 11:42 12/25/18 12:19 Temperature 97.8 F Pulse Rate 76 87 76 Respiratory Rate 18 16 16 Blood Pressure 157/81 H 167/83 H Pulse Oximetry 96 94 L 12/25/18 15:44 12/25/18 15:49 12/25/18 16:10 Temperature 98.3 F Pulse Rate 90 88 Respiratory Rate 16 18 Blood Pressure 171/93 H Pulse Oximetry 96 96 12/25/18 20:00 12/25/18 20:50 12/25/18 20:55 Temperature 97.9 F Pulse Rate 93 H Respiratory Rate 18 16 Blood Pressure 159/85 H Pulse Oximetry 98 95 12/25/18 23:00 12/26/18 00:14 12/26/18 03:34 Temperature 97.7 F 97.6 F Pulse Rate 87 95 H 79 Respiratory Rate 16 20 16 Blood Pressure 163/84 H 160/87 H Pulse Oximetry 97 95 Intake & Output 12/25/18 12/26/18 12/26/18 18:59 06:59 18:59 Intake Total 200 / 200 Output Total 900 / 900 Balance -700 / -700 Weight 86.3 kg Intake: Oral 200 / 200 Output: Urine 900 / 900 Other: Date of Last Bowel Movement 12/25/18 # Bowel Movements 6 Result Diagrams: 12/25/18 08:34 12/25/18 08:34 Laboratory Results: Laboratory Results - last 24 hr 12/25/18 12/25/18 12/25/18 08:34 08:34 09:00 WBC 5.8 RBC 4.65 Hgb 14.4 Hct 41.6 MCV 89.7 MCH 31.0 MCHC 34.6 RDW 13.5 Plt Count 316 MPV 8.1 Neut % (Auto) 71.7 H Lymph % (Auto) 16.6 [place] % (Auto) 11.6 H Eos % (Auto) 0.0 Baso % (Auto) 0.1 Neut # (Auto) 4.2 Lymph # (Auto) 1.0 [place] # (Auto) 0.7 Eos # (Auto) 0.0 Baso # (Auto) 0.0 WBC Differential . Differential Comment Auto diff final Sodium 123 L* Potassium 4.1 Chloride 88 L Carbon Dioxide 26.7 Anion Gap 8 BUN 15 Creatinine 0.65 Estimated GFR 88 L Random Glucose 112 H Calcium 9.0 D Total Bilirubin 0.4 AST 19 ALT 35 Alkaline Phosphatase 88 Total Protein 7.6 Albumin 4.1 Urine Osmolality 592 Ur Random Sodium 12/25/18 09:00 WBC RBC Hgb Hct MCV MCH MCHC RDW Plt Count MPV Neut % (Auto) Lymph % (Auto) [place] % (Auto) Eos % (Auto) Baso % (Auto) Neut # (Auto) Lymph # (Auto) [place] # (Auto) Eos # (Auto) Baso # (Auto) WBC Differential Differential Comment Sodium Potassium Chloride Carbon Dioxide Anion Gap BUN Creatinine Estimated GFR Random Glucose Calcium Total Bilirubin AST ALT Alkaline Phosphatase Total Protein Albumin Urine Osmolality Ur Random Sodium 102 Culture Results: Microbiology 12/21/18 12:37 Gram Stain - Final Bronchial - Right Upper Lobe Bronchial Culture - Final No growth in 48 hours Imaging Studies: Impressions Port Line Insertion 12/25/18 00:00 CONCLUSION: 1. Uncomplicated ultrasound and fluoroscopic guided implanted central venous port catheter placement as described in detail above. An 8 [place] Power port was placed. Medications: Active Medications Generic Name Dose Route Start Last Admin Trade Name Freq PRN Reason Stop Dose Admin Albuterol 1 ampul 12/23/18 14:00 12/25/18 21:34 Duoneb Neb (Bill) NEB 1 ampul QID NEB BILL Administration Calcium Carbonate 500 mg 12/23/18 22:50 12/24/18 00:42 Tums Chew CHEW 500 mg Q2H PRN Administration reflux/heartburn Clonidine HCl 0.1 mg 12/23/18 06:11 12/23/18 11:07 Catapres PO 0.1 mg Q6H PRN Administration SEE LABEL COMMENTS Guaifenesin 600 mg 12/20/18 21:00 12/25/18 20:58 Mucinex Er PO 600 mg BID BILL Administration Sodium Chloride 500 mls @ 30 mls/hr 12/21/18 08:00 12/21/18 17:27 Ns Inj IV.SIG Not Given .Q10H BILL Lactobacillus Acidophilus 1 tab 12/23/18 13:00 12/25/18 18:01 Lactinex PO Not Given TID BILL Levothyroxine Sodium 125 mcg 12/21/18 06:27 12/26/18 06:28 Synthroid PO 125 mcg DAILY@0600 BILL Administration Pantoprazole Sodium 40 mg 12/24/18 14:00 12/25/18 11:47 Protonix PO 40 mg DAILY BILL Administration Prednisone 10 mg 12/25/18 21:00 12/25/18 20:58 Deltasone PO 12/31/18 23:59 10 mg BID BILL Administration Sodium Chloride 2 ml 12/20/18 21:00 12/25/18 20:59 Ns Flush IV.FLUSH 2 ml BID BILL Administration Sodium Chloride 1 gm 12/22/18 09:15 12/25/18 20:58 Sodium Chloride PO 1 gm BID BILL Administration Tolvaptan 30 mg 12/25/18 09:00 12/25/18 11:47 Samsca PO 30 mg DAILY BILL Administration Tramadol HCl 100 mg 12/21/18 10:46 12/26/18 00:20 Ultram PO 100 mg Q6H PRN Administration Acute Pain 3-5 Objective Remarks: General physical appearance: Patient is an elderly lady, she sitting up in bed, she appears to be no acute distress she has a pleasant disposition. She speaks to me in full sentences, she is awake, alert and oriented x3. HEENT: Head atraumatic no cephalic, conjunctivae are non-pale sclerae anicteric , EOMI, PERRLA. Neck examination: On today's examination she has bilateral; right and left sided enlarged supraclavicular lymph nodes. Respiratory exam: Good air movement bilaterally, she has expiratory wheezing, scattered rales and rhonchi. Coarse crepitus. Cardioascular exam: Regular rate and rhythm, S1-S2 no obvious murmurs rubs gallops. Good peripheral pulses, no peripheral edema. Abdominal exam: Protuberant abdomen, soft, nontender, nondistended no palpable hepatosplenomegaly. Lower extremity's no pretibial edema no calf tenderness. 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 Musculoskeletal: Good muscle mass, tone and strength. 5 out of 5 upper and lower tremors. Psychiatric: Awake, alert, oriented, appropriate, understanding conversation held today. Skin examination: Nonfocal. Remainder of the exam was normal. Assessment/Plan - Plan 78-year-old female who has a [id number] smoking history admitted with increased shortness of breath, headache and dry cough. CT imaging of the chest showed a right hilar mass with abnormal soft tissue extending directly into the mediastinum with some circumferential involvement of the left main pulmonary artery in the right main bronchus. 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 Sodium levels marginally improved over the past weekend with fluid restriction alone. Recommendations: 1. 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 There is no evidence of brain metastases or intra-abdominal metastases on CT imaging/MRI imaging. She is a candidate for initiation of urgent inpatient systemic chemotherapy, chemotherapy teaching for carboplatin and etoposide has been delivered. BMP has been more ordered to be done this morning, await results. If her sodium levels continue to improve I will proceed with systemic chemotherapy with carboplatin and etoposide starting today. Carboplatin will be dose reduced to an AUC of 5 which translates to 600 mg x1 and etoposide will be delivered at 80 mg per metered squared daily which will translate to a dose of 180 mg daily on day 1-3. 2. Hyponatremia: Related to SIADH, continue tolvaptan, anticipate this will not require additional use following discharge. I anticipate her sodium levels to continue improving rapidly.
[2018-12-26] MEDS: Sodium Chloride 1 GM Tablet PO SCH ×2 (08:51→21:37)
[2018-12-26] MEDS: guaiFENesin 600 MG ER Tablet PO SCH ×2 (08:51→21:37)
[2018-12-26] MEDS: predniSONE 10 MG Tablet PO SCH ×2 (08:51→21:37)
[2018-12-26] MEDS: Lactobacillus Acidophilus/L. Spores Tablet PO SCH ×3 (08:51→17:23)
[2018-12-26 10:51] LABS: Calcium 9.1 mg/dL (8.5-10.1); Carbon Dioxide 28.5 meq/L (21.0-32.0); Potassium 3.8 meq/L (3.5-5.1)
[2018-12-26] MEDS ORDERED: Dexamethasone Inj 20 MG, Granisetron Inj 1 MG in Sodium Chlor 0.9% Inj 50 ML IV.SIG ONE ×2 (13:00)
[2018-12-26] MEDS ORDERED: Sodium Chlor 0.9% Inj 250 ML IV.SIG ONE (13:00)
[2018-12-26] MEDS ORDERED: CARBOPLATIN IV.SIG ONE (13:30)
[2018-12-26] MEDS ORDERED: SODIUM CHLOR 0.9% IV.SIG ONE (13:30)
[2018-12-26] MEDS: SODIUM CHLOR 0.9% IV.SIG SCH (15:25)
[2018-12-26] MEDS: ETOPOSIDE IV.SIG SCH (15:25)
--- NOTE | 2018-12-26 16:56 | P.PNIM ---
Subjective Interval history: With cough. No fever or chills. More awake and alert. Sodium is back to normal. Patient is asking for more fluid intake. Headaches improved. No chest pain or shortness of breath she is saturating well on 1 L by nasal cannula. No nausea or vomiting able to eat. Physical Exam Vital signs: Vital Signs 12/25/18 20:00 12/25/18 20:50 12/25/18 20:55 Temperature 97.9 F Pulse Rate 93 H Respiratory Rate 18 16 Blood Pressure 159/85 H Pulse Oximetry 98 95 12/25/18 23:00 12/26/18 00:14 12/26/18 03:34 Temperature 97.7 F 97.6 F Pulse Rate 87 95 H 79 Respiratory Rate 16 20 16 Blood Pressure 163/84 H 160/87 H Pulse Oximetry 97 95 12/26/18 09:02 12/26/18 09:25 12/26/18 09:27 Temperature 98.2 F Pulse Rate 88 77 Respiratory Rate 16 16 16 Blood Pressure 156/95 H Pulse Oximetry 96 12/26/18 11:39 12/26/18 13:02 12/26/18 15:41 Temperature 97.8 F 98.4 F Pulse Rate 78 82 84 Respiratory Rate 16 16 18 Blood Pressure 157/93 H 158/91 H Pulse Oximetry 94 L 93 L 12/26/18 15:54 Temperature Pulse Rate 84 Respiratory Rate 16 Blood Pressure Pulse Oximetry Intake & Output 12/25/18 12/26/18 12/26/18 18:59 06:59 18:59 Intake Total 200 / 200 356 / 356 Output Total 900 / 900 Balance -700 / -700 356 / 356 Weight 86.3 kg 81.2 kg Intake: IV 356 / 356 CARBOplatin Inj 500 MG In NS 300 / 300 Inj 250 ML @ 600 mls/hr IV.SIG ONCE ONE Rx#:[id number] Decadron Inj 20 MG Kytril Inj 1 56 / 56 MG In NS Inj 50 ML @ 224 mls/ hr IV.SIG ONCE ONE Rx#:[id number] Oral 200 / 200 Output: Urine 900 / 900 Other: Date of Last Bowel Movement 12/25/18 # Bowel Movements 6 Narrative: GENERAL: 78-year-old female, well-nourished well-developed appears in NAD SKIN: Pale. Warm and dry. CARDIOVASCULAR: Regular rate and rhythm. RESPIRATORY: No accessory muscle use. Improving wheezes GASTROINTESTINAL: Abdomen soft, non-tender, nondistended. MUSCULOSKELETAL: Extremities without clubbing, cyanosis, or edema. No obvious deformities. NEUROLOGICAL: Awake and alert. No obvious cranial nerve deficits. Motor grossly within normal limits. Normal speech. PSYCHIATRIC: Appropriate mood and affect; insight and judgment normal. Results Labs CBC & Chem 7: 12/25/18 08:34 12/26/18 09:33 Labs: Microbiology 12/25/18 20:34 Sputum - Expectorated Sputum Gram Stain - Final Procedures Procedures: Bronchoscopy Assessment and Plan Plan 78-year-old female with Acute onset of shortness of breath, improved Right-sided chest pain. Resolved Right hilar mass on chest CT Right middle lobe bronchial friable mass status post biopsy highly concerning for primary lung malignancy. Also has elevated AFP and Ca 15-3. Positive for small cell carcinoma will proceed with inpatient staging followed by inpatient systemic chemotherapy. Alert oncology COPD exac. Improved History of pulmonary fibrosis Dyspnea Status post IV azithromycin and Rocephin switch to p.o. Zithromax x1 today then discontinue DuoNeb as needed and schedule Decrease Solu-Medrol schedule Pulmonary medicine ff Maintain oxygen saturation above 92% Hypochloremic hyponatremia. Complained of mild headache. Stat head CT reviewed no acute findings. May be secondary to SIADH/right hilar mass. Fluid restriction and sodium chloride tabs. 3% 150 mL at 15 cc an hour, DCd. Started on tolvaptan with improvement in sodium. Dc NS and monitor closely. Seizure precautions and neuro checks. Hyperglycemia A1c 6.1 Low TSH and high FT4, Hx hypothyroidism decrease synthroid DVT prophylaxis: Bilateral SCDs Discussed with the patient, nurse Discharge plan: Started chemo
--- NOTE | 2018-12-26 19:03 | P.PN ---
Subjective Interval history: Chemotherapy planned for today. On O2 2 L. Chest tightness is improved. Less dyspneic. Physical Exam Vital signs: Vital Signs 12/25/18 20:00 12/25/18 20:50 12/25/18 20:55 Temperature 97.9 F Pulse Rate 93 H Respiratory Rate 18 16 Blood Pressure 159/85 H Pulse Oximetry 98 95 12/25/18 23:00 12/26/18 00:14 12/26/18 03:34 Temperature 97.7 F 97.6 F Pulse Rate 87 95 H 79 Respiratory Rate 16 20 16 Blood Pressure 163/84 H 160/87 H Pulse Oximetry 97 95 12/26/18 09:02 12/26/18 09:25 12/26/18 09:27 Temperature 98.2 F Pulse Rate 88 77 Respiratory Rate 16 16 16 Blood Pressure 156/95 H Pulse Oximetry 96 12/26/18 11:39 12/26/18 13:02 12/26/18 15:41 Temperature 97.8 F 98.4 F Pulse Rate 78 82 84 Respiratory Rate 16 16 18 Blood Pressure 157/93 H 158/91 H Pulse Oximetry 94 L 93 L 12/26/18 15:54 Temperature Pulse Rate 84 Respiratory Rate 16 Blood Pressure Pulse Oximetry Intake & Output 12/26/18 12/26/18 12/27/18 06:59 18:59 06:59 Intake Total 200 / 200 864.5 / 864.5 Output Total 900 / 900 1300 / 1300 Balance -700 / -700 -435.5 / -435.5 Weight 86.3 kg 81.2 kg Intake: IV 864.5 / 864.5 CARBOplatin Inj 500 MG In NS 300 / 300 Inj 250 ML @ 600 mls/hr IV.SIG ONCE ONE Rx#:[id number] Decadron Inj 20 MG Kytril Inj 1 56 / 56 MG In NS Inj 50 ML @ 224 mls/ hr IV.SIG ONCE ONE Rx#:[id number] Vepesid Inj 170 MG In NS Inj 508.5 / 508.5 500 ML @ 508.5 mls/hr IV.SIG Q24H DAGO Rx#:[id number] Oral 200 / 200 Output: Urine 900 / 900 1300 / 1300 Other: Date of Last Bowel Movement 12/26/18 # Bowel Movements 1 Narrative: General physical appearance: Patient is an elderly lady, she sitting up in bed, in no acute distress . she is awake, alert and oriented x3. HEENT: Head atraumatic no cephalic, conjunctivae are non-pale sclerae anicteric , EOMI, PERRLA. Neck examination: No palpable cervical or supraclavicular adenopathy. Respiratory exam: Decreased air movement right lung field, with occasional wheezes Cardiovascular exam: Regular rate and rhythm, S1-S2 no obvious murmurs rubs gallops. no peripheral edema. Abdominal exam: Protuberant abdomen, soft, nontender, nondistended no palpable hepatosplenomegaly. Lower extremity's no pretibial edema no calf tenderness. FORMULATOR COMPOUNDER: No focal sensorimotor deficits. Musculoskeletal: Good muscle mass, tone and strength. Psychiatric: Awake, alert, with normal affect. Results - Labs CBC & Chem 7: 12/25/18 08:34 12/26/18 09:33 Laboratory Results - last 24 hr 12/26/18 09:33 Sodium 137 D Potassium 3.8 Chloride 102 D Carbon Dioxide 28.5 Anion Gap 7 BUN 19 H Creatinine 0.78 Estimated GFR 71 L Random Glucose 81 Calcium 9.1 Microbiology 12/25/18 20:34 Sputum - Expectorated Sputum Gram Stain - Final - Procedures Bronchoscopy Assessment and Plan - Assessment (1) Small cell lung cancer, overlapping sites of right lung Code(s): C34.81 - Malignant neoplasm of overlapping sites of right bronchus and lung Status: Acute (2) COPD (chronic obstructive pulmonary disease) Code(s): J44.9 - Chronic obstructive pulmonary disease, unspecified Status: Acute (3) Obstructive pneumonia Code(s): J18.9 - Pneumonia, unspecified organism Status: Acute (4) Hilar mass Code(s): R91.8 - Other nonspecific abnormal finding of lung field Status: Acute - Plan #1 O2 3 L nasal cannula to keep sats over 92 2. Oncology for chemotherapy . 3. DuoNeb nebs every 4 hours 4. DC Solu-Medrol 5. Symbicort 160 x 4.5 mcg 2 puffs twice daily 6. Labs in a.m. 7. DC IV Rocephin
[2018-12-27] MEDS: Levothyroxine 125 MCG Tablet PO SCH (06:24)
--- NOTE | 2018-12-27 07:22 | P.PNONC ---
Subjective Interval history: Patient seen and examined, vital signs, labs, medications and chemotherapy administration orders reviewed. Subjectively, patient denies acute complaints, she reports tolerating treatment without difficulties. She specifically denies difficulty breathing, chest pain, PND, orthopnea, fevers or chills. Objective Vital Signs/Intake & Output: Vital Signs 12/26/18 09:02 12/26/18 09:25 12/26/18 09:27 Temperature 98.2 F Pulse Rate 88 77 Respiratory Rate 16 16 16 Blood Pressure 156/95 H Pulse Oximetry 96 12/26/18 11:39 12/26/18 13:02 12/26/18 15:41 Temperature 97.8 F 98.4 F Pulse Rate 78 82 84 Respiratory Rate 16 16 18 Blood Pressure 157/93 H 158/91 H Pulse Oximetry 94 L 93 L 12/26/18 15:54 12/26/18 20:14 12/26/18 20:24 Temperature 97.8 F Pulse Rate 84 84 Respiratory Rate 16 20 Blood Pressure 175/88 H 152/93 H Pulse Oximetry 96 12/26/18 21:30 12/27/18 00:41 12/27/18 04:00 Temperature 98 F 98 F Pulse Rate 95 H 83 80 Respiratory Rate 18 18 18 Blood Pressure 157/91 H 169/93 H Pulse Oximetry 95 96 96 Intake & Output 12/26/18 12/27/18 12/27/18 18:59 06:59 18:59 Intake Total 864.5 / 864.5 Output Total 1300 / 1300 1525 / 1525 Balance -435.5 / -435.5 -1525 / -1525 Weight 81.2 kg 81 kg Intake: IV 864.5 / 864.5 CARBOplatin Inj 500 MG In NS 300 / 300 Inj 250 ML @ 600 mls/hr IV.SIG ONCE ONE Rx#:[id number] Decadron Inj 20 MG Kytril Inj 1 56 / 56 MG In NS Inj 50 ML @ 224 mls/ hr IV.SIG ONCE ONE Rx#:[id number] Vepesid Inj 170 MG In NS Inj 508.5 / 508.5 500 ML @ 508.5 mls/hr IV.SIG Q24H BILL Rx#:[id number] Output: Urine 1300 / 1300 1525 / 1525 Other: Date of Last Bowel Movement 12/26/18 12/26/18 # Bowel Movements 1 Result Diagrams: 12/25/18 08:34 12/26/18 09:33 Laboratory Results: Laboratory Results - last 24 hr 12/26/18 09:33 Sodium 137 D Potassium 3.8 Chloride 102 D Carbon Dioxide 28.5 Anion Gap 7 BUN 19 H Creatinine 0.78 Estimated GFR 71 L Random Glucose 81 Calcium 9.1 Culture Results: Microbiology 12/25/18 20:34 Gram Stain - Final Sputum - Expectorated Sputum Medications: Active Medications Generic Name Dose Route Start Last Admin Trade Name Freq PRN Reason Stop Dose Admin Albuterol 1 ampul 12/23/18 14:00 12/26/18 21:30 Duoneb Neb (Bill) NEB 1 ampul QID NEB BILL Administration Calcium Carbonate 500 mg 12/23/18 22:50 12/24/18 00:42 Tums Chew CHEW 500 mg Q2H PRN Administration reflux/heartburn Clonidine HCl 0.1 mg 12/23/18 06:11 12/23/18 11:07 Catapres PO 0.1 mg Q6H PRN Administration SEE LABEL COMMENTS Guaifenesin 600 mg 12/20/18 21:00 12/26/18 21:37 Mucinex Er PO 600 mg BID BILL Administration Sodium Chloride 500 mls @ 30 mls/hr 12/21/18 08:00 12/21/18 17:27 Ns Inj IV.SIG Not Given .Q10H BILL Etoposide 170 mg/ Sodium 508.5 mls @ 508.5 mls/hr 12/26/18 14:00 12/26/18 16: 56 Chloride IV.SIG 12/28/18 14:59 Infused Q24H BILL Infusion Lactobacillus Acidophilus 1 tab 12/23/18 13:00 12/26/18 17:23 Lactinex PO 1 tab TID BILL Administration Levothyroxine Sodium 125 mcg 12/21/18 06:27 12/27/18 06:24 Synthroid PO 125 mcg DAILY@0600 BILL Administration Padimate O 1 applicatio 12/27/18 03:45 12/27/18 04:39 Chapstick TOPICAL 1 applicatio UNSCH PRN Administration DRY LIPS Pantoprazole Sodium 40 mg 12/24/18 14:00 12/26/18 08:51 Protonix PO 40 mg DAILY BILL Administration Prednisone 10 mg 12/25/18 21:00 12/26/18 21:37 Deltasone PO 12/31/18 23:59 10 mg BID BILL Administration Sodium Chloride 2 ml 12/20/18 21:00 12/26/18 21:38 Ns Flush IV.FLUSH 2 ml BID BILL Administration Sodium Chloride 1 gm 12/22/18 09:15 12/26/18 21:37 Sodium Chloride PO 1 gm BID BILL Administration Tramadol HCl 100 mg 12/21/18 10:46 12/26/18 08:52 Ultram PO 100 mg Q6H PRN Administration Acute Pain 3-5 Objective Remarks: General physical appearance: Patient is an elderly lady, she sitting up in bed, she appears to be no acute distress she has a pleasant disposition. She speaks to me in full sentences, she is awake, alert and oriented x3. HEENT: Head atraumatic no cephalic, conjunctivae are non-pale sclerae anicteric , EOMI, PERRLA. Neck examination: On today's examination she has bilateral; right and left sided enlarged supraclavicular lymph nodes. Respiratory exam: Good air movement bilaterally, she has expiratory wheezing, scattered rales and rhonchi. Coarse crepitus. Cardioascular exam: Regular rate and rhythm, S1-S2 no obvious murmurs rubs gallops. Good peripheral pulses, no peripheral edema. Abdominal exam: Protuberant abdomen, soft, nontender, nondistended no palpable hepatosplenomegaly. Lower extremity's no pretibial edema no calf tenderness. 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 Musculoskeletal: Good muscle mass, tone and strength. 5 out of 5 upper and lower tremors. Psychiatric: Awake, alert, oriented, appropriate, understanding conversation held today. Skin examination: Nonfocal. Remainder of the exam was normal. Assessment/Plan - Plan 78-year-old female who has a [id number] smoking history admitted with increased shortness of breath, headache and dry cough. CT imaging of the chest showed a right hilar mass with abnormal soft tissue extending directly into the mediastinum with some circumferential involvement of the left main pulmonary artery in the right main bronchus. 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 Sodium levels marginally improved over the past weekend with fluid restriction alone. Recommendations: 1. 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 Today will be cycle number 1 day 2 systemic chemotherapy, she received day 1 carboplatin and etoposide on 2018. 2. Hyponatremia: Related SIADH, resolved with fluid restriction and 2 doses of tolvaptan. No longer on tolvaptan, sodium level was noted 137 on 12/26/2018. Disposition: Proceed with chemotherapy today and then tomorrow. She will be ready for discharge home on 12/28/2018. Outpatient follow-up will be arranged.
[2018-12-27] MEDS: Lactobacillus Acidophilus/L. Spores Tablet PO SCH ×3 (09:35→18:44)
[2018-12-27] MEDS: guaiFENesin 600 MG ER Tablet PO SCH ×2 (09:35→20:19)
[2018-12-27] MEDS: predniSONE 10 MG Tablet PO SCH ×2 (09:36→20:19)
[2018-12-27] MEDS: Sodium Chloride 1 GM Tablet PO SCH ×2 (12:39→20:19)
[2018-12-27] MEDS: Dexamethasone Inj 10 MG in Sodium Chlor 0.9% Inj 50 ML IV.SIG SCH (14:21)
--- NOTE | 2018-12-27 14:24 | P.PNIM ---
Subjective Interval history: In bed receiving chemotherapy. Seems tolerating well so far. No nausea or vomiting. Reports diarrhea. No fever or chills overnight. Some cough with productive sputum, no blood in it. She is saturating well on room air. no headache Eating well Physical Exam Vital signs: Vital Signs 12/26/18 15:41 12/26/18 15:54 12/26/18 20:14 Temperature 98.4 F 97.8 F Pulse Rate 84 84 84 Respiratory Rate 18 16 20 Blood Pressure 158/91 H 175/88 H Pulse Oximetry 93 L 96 12/26/18 20:24 12/26/18 21:30 12/27/18 00:41 Temperature 98 F Pulse Rate 95 H 83 Respiratory Rate 18 18 Blood Pressure 152/93 H 157/91 H Pulse Oximetry 95 96 12/27/18 04:00 12/27/18 08:00 12/27/18 10:10 Temperature 98 F 97.9 F Pulse Rate 80 83 87 Respiratory Rate 18 18 18 Blood Pressure 169/93 H 187/99 H Pulse Oximetry 96 100 93 L 12/27/18 14:10 Temperature Pulse Rate 85 Respiratory Rate 18 Blood Pressure Pulse Oximetry Intake & Output 12/26/18 12/27/18 12/27/18 18:59 06:59 18:59 Intake Total 864.5 / 864.5 Output Total 1300 / 1300 1525 / 1525 Balance -435.5 / -435.5 -1525 / -1525 Weight 81.2 kg 81 kg Intake: IV 864.5 / 864.5 CARBOplatin Inj 500 MG In NS 300 / 300 Inj 250 ML @ 600 mls/hr IV.SIG ONCE ONE Rx#:[id number] Decadron Inj 20 MG Kytril Inj 1 56 / 56 MG In NS Inj 50 ML @ 224 mls/ hr IV.SIG ONCE ONE Rx#:[id number] Vepesid Inj 170 MG In NS Inj 508.5 / 508.5 500 ML @ 508.5 mls/hr IV.SIG Q24H DAGO Rx#:[id number] Output: Urine 1300 / 1300 1525 / 1525 Other: Date of Last Bowel Movement 12/26/18 12/26/18 # Bowel Movements 1 Narrative: GENERAL: 78-year-old female, well-nourished well-developed appears in NAD SKIN: Pale. Warm and dry. CARDIOVASCULAR: Regular rate and rhythm. RESPIRATORY: No accessory muscle use. Improving wheezes GASTROINTESTINAL: Abdomen soft, non-tender, nondistended. MUSCULOSKELETAL: Extremities without clubbing, cyanosis, or edema. No obvious deformities. NEUROLOGICAL: Awake and alert. No obvious cranial nerve deficits. Motor grossly within normal limits. Normal speech. PSYCHIATRIC: Appropriate mood and affect; insight and judgment normal. Results Labs CBC & Chem 7: 12/25/18 08:34 12/27/18 13:40 Labs: Microbiology 12/25/18 20:34 Sputum - Expectorated Sputum Gram Stain - Final 12/25/18 20:34 Sputum - Expectorated Sputum Sputum Culture - Preliminary Heavy growth normal respiratory natividad at 24 hours Procedures Procedures: Bronchoscopy Assessment and Plan (1) Small cell lung cancer, overlapping sites of right lung: Code(s): C34.81 - Malignant neoplasm of overlapping sites of right bronchus and lung Status: Acute (2) COPD (chronic obstructive pulmonary disease): Code(s): J44.9 - Chronic obstructive pulmonary disease, unspecified Status: Acute (3) Obstructive pneumonia: Code(s): J18.9 - Pneumonia, unspecified organism Status: Acute (4) Hilar mass: Code(s): R91.8 - Other nonspecific abnormal finding of lung field Status: Acute Plan 78-year-old female with Acute onset of shortness of breath, improved, satting well on rrom air at this time Right-sided chest pain. Resolved Right hilar mass on chest CT Right middle lobe bronchial friable mass status post biopsy highly concerning for primary lung malignancy. Also has elevated AFP and Ca 15-3. Positive for small cell carcinoma s/p inpatient staging followed by inpatient systemic chemotherapy. 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 2 systemic chemotherapy, she received day 1 carboplatin and etoposide on 12/26/2018. COPD exac. Improved History of pulmonary fibrosis Dyspnea Status post IV azithromycin and Rocephin switch to p.o. Zithromax x1 then discontinue DuoNeb as needed and schedule Decrease Solu-Medrol schedule Pulmonary medicine ff Maintain oxygen saturation above 92% Hypochloremic hyponatremia. Complained of mild headache, resolved. Stat head CT reviewed no acute findings. May be secondary to SIADH/right hilar mass. Fluid restriction and sodium chloride tabs. 3% 150 mL at 15 cc an hour, DCd. Received tolvaptan with improvement in sodium. Dc NS and monitor closely. Seizure precautions and neuro checks. Hyperglycemia A1c 6.1 Low TSH and high FT4, Hx hypothyroidism decrease synthroid DVT prophylaxis: Bilateral SCDs Discussed with the patient, nurse Discharge plan: Started chemo. poss DC tomorrow _ (1) COPD (chronic obstructive pulmonary disease) Qualifiers: COPD type: Chronic bronchitis type: Emphysema type:
[2018-12-27 14:57] LABS: Calcium 8.3 mg/dL (8.5-10.1); Carbon Dioxide 30.2 meq/L (21.0-32.0); Potassium 3.8 meq/L (3.5-5.1)
[2018-12-27] MEDS: SODIUM CHLOR 0.9% IV.SIG SCH (15:31)
[2018-12-27] MEDS: ETOPOSIDE IV.SIG SCH (15:31)
--- NOTE | 2018-12-27 17:45 | P.DS ---
DS: Providers Date of admission: 12/20/18 15:56 Primary care physician: Belgica Méndez MD Consults: 12/20/18 15:52 Consult to Pulmonology Stat Consulting Provider: Rashi Flaherty V For STAT consult, spoke directly to:: Dr. Flaherty Preferred Chief Engineer Waterworks:: Rashi Flaherty Reason for Consultation: Hilar mass Notified:: Office Spoke with:: Greer Date Notified:: 12/20/18 Time Notified:: 16:10 Ordering Provider: DAVID 12/21/18 14:53 Consult to Oncology Routine Consulting Provider: Antony Fleming Reason for Consultation: Right hilar mass status post bronchoscopy pending cytology. Also has elevated AFP and CA 153 Notified:: Office Spoke with:: Katelynn Date Notified:: 12/21/18 Time Notified:: 14:58 Ordering Provider: VENANCIO 12/25/18 08:21 Consult to Radiation Oncology Routine Consulting Provider: Cliff Marrero Reason for Consultation: Small Cell lung cancer; appears to be limited stage , enlarged supra-clav LNs, R middle lobe mass. Notified:: Service Spoke with:: Trinh Date Notified:: 12/25/18 Time Notified:: 08:46 Ordering Provider: RON Brief History from admission: 78-year-old female for past medical history of hypothyroidism, hyperlipidemia and a 40+ years of prior history of tobacco abuse presented to the ED today for evaluation of an acute onset of shortness of breath which started around 3 AM this morning. Patient states, she became slightly short of breath and was gasping for air as a result she could not talk. She also noted significant right-sided pain mostly on the right shoulder blade as well as the right breast area. She presented to the ED , and a chest x-ray was positive for patchy interstitial infiltrate. Secondary to elevated d-dimer a chest CT was ordered which revealed a right hilar mass for which pulmonary medicine was consulted for bronchoscopy. Patient state, recent chest MRI was performed on and revealed pulmonary fibrosis however without any evidence of lung mass. Abnormal lab include sodium of 119 and chloride of 85. Patient denies any nausea and vomiting. She also complained of dry cough. She has had no hemoptysis or GI bleed. DS: Diagnosis Discharge Diagnosis (1) Small cell lung cancer, overlapping sites of right lung: Status: Acute (2) COPD (chronic obstructive pulmonary disease): Status: Acute (3) Obstructive pneumonia: Status: Acute (4) Hilar mass: Status: Acute DS: Summary 78-year-old female with Acute onset of shortness of breath/ acute respiratory failure, improved, however she is requiring O2 2L by NC she did fail home O2 waling test. Right-sided chest pain. Resolved Right hilar mass on chest CT Right middle lobe bronchial friable mass status post biopsy highly concerning for primary lung malignancy. Also has elevated AFP and Ca 15-3. Positive for small cell carcinoma s/p inpatient staging followed by inpatient systemic chemotherapy. 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 2 systemic chemotherapy, she received day 1 carboplatin and etoposide on 12/26/2018. COPD exac. Improving History of pulmonary fibrosis Dyspnea Acute respiratory failure requiring O2./ patient failed Home O2 walking test and is requiring O2 at DC. CM consulted for arrangements. Status post IV azithromycin and Rocephin switch to p.o. Zithromax x1 then discontinue DuoNeb as needed and schedule Decrease Solu-Medrol taper and DC Pulmonary medicine ff Maintain oxygen saturation above 92%. Sattign well on room air Hypochloremic hyponatremia. Complained of mild headache, resolved. Stat head CT reviewed no acute findings. May be secondary to SIADH/right hilar mass. Fluid restriction and sodium chloride tabs. 3% 150 mL at 15 cc an hour, DCd. Received tolvaptan with improvement in sodium. Dc NS, no longer on tolvaptan, Na back to normal. Was on seizure precautions and neuro checks. Patient is stable. Hyperglycemia, A1c 6.1 Low TSH and high FT4, Hx hypothyroidism decrease synthroid Time Spent with Patient Total time spent providing and/or coordinating discharge services: >30 min Exam Narrative Exam Narrative: GENERAL: 78-year-old female, well-nourished well-developed appears in NAD SKIN: Pale. Warm and dry. CARDIOVASCULAR: Regular rate and rhythm. RESPIRATORY: No accessory muscle use. No wheezing./ On 2L NC. GASTROINTESTINAL: Abdomen soft, non-tender, nondistended. MUSCULOSKELETAL: Extremities without clubbing, cyanosis, or edema. No obvious deformities. NEUROLOGICAL: Awake and alert. No obvious cranial nerve deficits. Motor grossly within normal limits. Normal speech. PSYCHIATRIC: Appropriate mood and affect; insight and judgment normal. Results Procedures completed during hospitalization: Bronchoscopy Labs on day of discharge: Labs from last 24 hours 12/27/18 13:40 Sodium 137 Potassium 3.8 Chloride 101 Carbon Dioxide 30.2 Anion Gap 6 BUN 24 H Creatinine 0.78 Estimated GFR 71 L Random Glucose 126 H Calcium 8.3 L D Preliminary micro results at discharge 12/25/18 20:34 Sputum Culture - Preliminary Sputum - Expectorated Sputum Heavy growth normal respiratory natividad at 24 hours Impressions ITS Impressions Chest CTA 12/20/18 14:15 CONCLUSION: 1. Right hilar mass with abnormal soft tissue extending directly into the mediastinum with some circumferential involvement of the left main pulmonary artery and the right main bronchus. Findings were not present on the previous study 2. 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 Ultrasound-guided bronchoscopy could easily be used to make a diagnosis Chest X-Ray 12/21/18 12:42 CONCLUSION: Cardiomegaly with basilar dependent airspace disease in the lungs. No pneumothorax. Abdomen/Pelvis CT 12/23/18 00:00 CONCLUSION: 1. Negative CT of the abdomen/pelvis with contrast. Head MRI 12/23/18 00:00 CONCLUSION: 1. No abnormal enhancing masses or cerebral edema. 2. Prominent diffuse prolongation in the supratentorial white matter is somewhat atypical for ischemic demyelination and suggests the possibility of a demyelinating process such as multiple sclerosis. No abnormal areas of enhancement in the white matter. Head CT 12/23/18 10:10 CONCLUSION: 1. Negative for acute process . . Port Line Insertion 12/25/18 00:00 CONCLUSION: 1. Uncomplicated ultrasound and fluoroscopic guided implanted central venous port catheter placement as described in detail above. An 8 [place] Power port was placed. Discharge Plan Discharge Disposition Patient Disposition: W/Home Health Service Discharge Condition Condition: Stable Discharge Order Discharge Orders: Discharge Order (Routine); Ordered 12/28/18 Ordered By: Peggy Winn Discharge Details Anticipated Discharge Date: 12/28/18 Discharge Comment: DC when cleared by hem onc after receiving chemo Physicians Team Primary Care Provider: Belgica Méndez Attending Provider: Peggy Winn Other Providers: Rashi Flaherty V ; Antony Fleming ; Cliff Marrero Rxs /Orders / Referrals /Forms Prescriptions: New prednisone 10 mg Tablet 10 mg PO BID Qty: 4 RF: 0 guaifenesin [Mucinex] 600 mg Tablet Extended Release 12hr 600 mg PO BID Qty: 7 RF: 0 pantoprazole 40 mg Tablet,Delayed Release (Dr/Ec) 40 mg PO DAILY Qty: 30 RF: 0 budesonide-formoterol [Symbicort] 160-4.5 mcg/actuation HFA aerosol inhaler 2 inh INHALATION Q12H Qty: 10.2 RF: 0 albuterol sulfate 90 mcg/actuation HFA aerosol inhaler 1 inh INHALATION Q4-6H PRN (Reason: shortness of breath or wheezing) Qty: 18 RF: 0 ipratropium bromide 17 mcg/actuation HFA aerosol inhaler 1 inh INHALATION Q6H PRN (Reason: shortness of breath or wheezing) Qty: 12.9 RF: 0 Continue lovastatin 10 mg Tablet PO DAILY RF: 0 multivitamin Capsule 1 cap PO QAM RF: 0 levothyroxine 125 mcg Capsule 125 mcg PO DAILY RF: 0 Ambulatory Orders / Order Sets / DME: Oxygen Tank (2 liter) (Routine) Location: Determined by Patient Ordered By: Peggy Winn Referrals: [facility], [Agency] - See Instructions Rashi Flaherty MD [Physician] - See Instructions ( Please call the physician 's office to book the appointment to be seen within [1-2 weeks].) Belgica Méndez MD [Primary Care Provider] - See Instructions ( Your appointment has been scheduled for [01/04] at [11:00AM] with Dr. Méndez phone# [phone] If you cannot make this appointment, please call the office to reschedule ) Antony Fleming MD [Physician] - See Instructions ( Please call the physician's office to book the appointment to be seen within [1 week].) Discharge Instructions Patient Printed Instructions: Pantoprazole (By mouth), Lung Cancer (DC), Patient and Family Safety During Chemotherapy (AC) Additional Instructions: Your Health Problems: Goals to Promote Your Health: * To prevent worsening of your condition * To maintain your health at the optimal level Directions to Meet Your Goals: * Take your medications as prescribed * Follow your dietary instruction * Follow activity as directed * Keep your appointments as scheduled * Take your immunizations and boosters as scheduled * If your symptoms worsen call your PCP * If no PCP go to Urgent Care or Emergency Room Smoking is dangerous to your health. Avoid second hand smoke. You may reach the 24-hour crisis hotline for domestic abuse at . Status ED Status: Left Department
--- NOTE | 2018-12-27 18:19 | P.PN ---
Subjective Interval history: Received chemo yesterday. Stable off oxygen. Denies chest pains but has an occasional cough. Ambulates in room without shortness of breath. Physical Exam Vital signs: Vital Signs 12/26/18 20:14 12/26/18 20:24 12/26/18 21:30 Temperature 97.8 F Pulse Rate 84 95 H Respiratory Rate 20 18 Blood Pressure 175/88 H 152/93 H Pulse Oximetry 96 95 12/27/18 00:41 12/27/18 04:00 12/27/18 08:00 Temperature 98 F 98 F 97.9 F Pulse Rate 83 80 83 Respiratory Rate 18 18 18 Blood Pressure 157/91 H 169/93 H 187/99 H Pulse Oximetry 96 96 100 12/27/18 10:10 12/27/18 12:00 12/27/18 14:10 Temperature 97.8 F Pulse Rate 87 84 85 Respiratory Rate 18 18 18 Blood Pressure 161/78 H Pulse Oximetry 93 L 97 12/27/18 16:00 Temperature 97.8 F Pulse Rate 80 Respiratory Rate 16 Blood Pressure 156/80 H Pulse Oximetry 98 Intake & Output 12/26/18 12/27/18 12/27/18 18:59 06:59 18:59 Intake Total 864.5 / 864.5 52.5 / 52.5 Output Total 1300 / 1300 1525 / 1525 Balance -435.5 / -435.5 -1525 / -1525 52.5 / 52.5 Weight 81.2 kg 81 kg Intake: IV 864.5 / 864.5 52.5 / 52.5 CARBOplatin Inj 500 MG In NS 300 / 300 Inj 250 ML @ 600 mls/hr IV.SIG ONCE ONE Rx#:[id number] Decadron Inj 20 MG Kytril Inj 1 56 / 56 MG In NS Inj 50 ML @ 224 mls/ hr IV.SIG ONCE ONE Rx#:[id number] Decadron Inj 10 MG In NS Inj 50 52.5 / 52.5 ML @ 210 mls/hr IV.SIG Q24H DAGO Rx#:[id number] Vepesid Inj 170 MG In NS Inj 508.5 / 508.5 500 ML @ 508.5 mls/hr IV.SIG Q24H DAGO Rx#:[id number] Output: Urine 1300 / 1300 1525 / 1525 Other: Date of Last Bowel Movement 12/26/18 12/26/18 # Bowel Movements 1 Narrative: General physical appearance: Patient is an elderly lady in no acute distress HEENT: Head atraumatic normocephalic, conjunctivae are non-pale sclerae anicteric, , PERRLA. Neck examination: No palpable cervical or supraclavicular adenopathy. Respiratory exam: Decreased air movement right lung field, and she has expiratory wheezing, with no crackles. Cardiovascular exam: Regular rate and rhythm, S1-S2 no obvious murmurs rubs gallops. no peripheral edema. Abdominal exam: Protuberant abdomen, soft, nontender, nondistended no palpable hepatosplenomegaly. Lower extremity's no pretibial edema no calf tenderness. ENGINEHOUSE BRAKEMAN: No focal sensorimotor deficits. Musculoskeletal: Good muscle mass, tone and strength. Psychiatric: Awake, alert, with normal affect. Results - Labs CBC & Chem 7: 12/25/18 08:34 12/27/18 13:40 Laboratory Results - last 24 hr 12/27/18 13:40 Sodium 137 Potassium 3.8 Chloride 101 Carbon Dioxide 30.2 Anion Gap 6 BUN 24 H Creatinine 0.78 Estimated GFR 71 L Random Glucose 126 H Calcium 8.3 L D Microbiology 12/25/18 20:34 Sputum - Expectorated Sputum Gram Stain - Final 12/25/18 20:34 Sputum - Expectorated Sputum Sputum Culture - Preliminary Heavy growth normal respiratory natividad at 24 hours - Procedures Bronchoscopy Assessment and Plan - Assessment (1) Small cell lung cancer, overlapping sites of right lung Code(s): C34.81 - Malignant neoplasm of overlapping sites of right bronchus and lung Status: Acute (2) COPD (chronic obstructive pulmonary disease) Code(s): J44.9 - Chronic obstructive pulmonary disease, unspecified Status: Acute (3) Obstructive pneumonia Code(s): J18.9 - Pneumonia, unspecified organism Status: Acute (4) Hilar mass Code(s): R91.8 - Other nonspecific abnormal finding of lung field Status: Acute - Plan #1 DC O2 sat over 90 2. Home today for outpatient follow-up in 2 weeks 3. DC DuoNeb nebs 4. Ventolin inhaler 2 puffs 4 times daily as needed 5. Symbicort 160 x 4.5 mcg 2 puffs twice daily 6. We will get chest x-ray in 2 weeks
--- NOTE | 2018-12-27 18:26 | P.DCO ---
Diagnosis (1) Small cell lung cancer, overlapping sites of right lung: Status: Acute (2) COPD (chronic obstructive pulmonary disease): Status: Acute (3) Obstructive pneumonia: Status: Acute (4) Hilar mass: Status: Acute Home Health Nursing Order: Medical education, Signs/symptoms of disease process, Oxygen administration education, Medication education-adverse effect and Nursing assessment with vital signs Case Management Consult Case Management Consult-Home Health: Yes I have seen patient Carrie Huerta on 12/27/18. My clinical findings support the need for the requested home health care services because: Limited mobility due to disease progression and Patient has SOB I certify that my clinical findings support that this patient is homebound because: Post-op weakness and Hx COPD - exertion dyspnea/weakness _ (1) COPD (chronic obstructive pulmonary disease) Qualifiers: COPD type: Chronic bronchitis type: Emphysema type:
[2018-12-27 20:19] VITALS: RESP 18
[2018-12-28] MEDS: Levothyroxine 125 MCG Tablet PO SCH (05:22)
[2018-12-28 06:52] LABS: Alanine Aminotransferase 29 U/L (10-53); Albumin 3.4 g/dL (3.4-5.0); Alkaline Phosphatase 68 U/L (45-117); Anion Gap 6 meq/L (5-15); Aspartate Aminotransferase 15 U/L (15-37); Blood Urea Nitrogen 17 mg/dL (7-18); Carbon Dioxide 28.3 meq/L (21.0-32.0); Chloride 99 meq/L (98-107); Glomerular Filtration Rate Greater Than 89 mL/min (>89); Glucose,Random 113 mg/dL (74-106); Sodium 133 meq/L (136-145); Total Protein 6.3 g/dL (6.4-8.2)
--- NOTE | 2018-12-28 09:02 | P.PNONC ---
Subjective Interval history: Patient seen and examined today. Vital signs, labs, medications and chemotherapy infusion records reviewed. Patient reports improvement in cough and improved breathing over the past 24 hours. She tells me she feels comfortable and denies adverse effects related to chemotherapy. She is looking forward to going home later today. Objective Vital Signs/Intake & Output: Vital Signs 12/27/18 10:10 12/27/18 12:00 12/27/18 14:10 Temperature 97.8 F Pulse Rate 87 84 85 Respiratory Rate 18 18 18 Blood Pressure 161/78 H Pulse Oximetry 93 L 97 12/27/18 16:00 12/27/18 20:00 12/27/18 21:34 Temperature 97.8 F 97.5 F L Pulse Rate 80 83 Respiratory Rate 16 18 Blood Pressure 156/80 H 169/90 H Pulse Oximetry 98 95 94 L 12/28/18 00:00 12/28/18 04:00 Temperature 97.3 F L 97.3 F L Pulse Rate 74 81 Respiratory Rate 18 18 Blood Pressure 155/90 H 143/83 H Pulse Oximetry 96 96 Intake & Output 12/27/18 12/28/18 12/28/18 18:59 06:59 18:59 Intake Total 1161.0 / 1161.0 240 / 240 Output Total 650 / 650 1450 / 1450 Balance 511.0 / 511.0 -1210 / -1210 Weight 81.3 kg Intake: IV 561.0 / 561.0 Decadron Inj 10 MG In NS Inj 50 52.5 / 52.5 ML @ 210 mls/hr IV.SIG Q24H DAGO Rx#:[id number] Vepesid Inj 170 MG In NS Inj 508.5 / 508.5 500 ML @ 508.5 mls/hr IV.SIG Q24H DAGO Rx#:[id number] Oral 600 / 600 240 / 240 Output: Urine 650 / 650 1450 / 1450 Other: Date of Last Bowel Movement 12/27/18 12/27/18 # Bowel Movements 1 Result Diagrams: 12/25/18 08:34 12/28/18 05:16 Laboratory Results: Laboratory Results - last 24 hr 12/27/18 12/28/18 13:40 05:16 Sodium 137 133 L Potassium 3.8 4.0 Chloride 101 99 Carbon Dioxide 30.2 28.3 Anion Gap 6 6 BUN 24 H 17 Creatinine 0.78 0.53 Estimated GFR 71 L Greater than 89 Random Glucose 126 H 113 H Calcium 8.3 L D 8.0 L Total Bilirubin 0.6 AST 15 ALT 29 Alkaline Phosphatase 68 Total Protein 6.3 L D Albumin 3.4 Culture Results: Microbiology 12/25/18 20:34 Gram Stain - Final Sputum - Expectorated Sputum Sputum Culture - Preliminary Heavy growth normal respiratory natividad at 24 hours Medications: Active Medications Generic Name Dose Route Start Last Admin Trade Name Freq PRN Reason Stop Dose Admin Calcium Carbonate 500 mg 12/23/18 22:50 12/24/18 00:42 Tums Chew CHEW 500 mg Q2H PRN Administration reflux/heartburn Clonidine HCl 0.1 mg 12/23/18 06:11 12/23/18 11:07 Catapres PO 0.1 mg Q6H PRN Administration SEE LABEL COMMENTS Guaifenesin 600 mg 12/20/18 21:00 12/27/18 20:19 Mucinex Er PO 600 mg BID DAGO Administration Sodium Chloride 500 mls @ 30 mls/hr 12/21/18 08:00 12/21/18 17:27 Ns Inj IV.SIG Not Given .Q10H DAGO Etoposide 170 mg/ Sodium 508.5 mls @ 508.5 mls/hr 12/26/18 14:00 12/27/18 18: 48 Chloride IV.SIG 12/28/18 14:59 Infused Q24H DAGO Infusion Dexamethasone Sodium Phosphate 52.5 mls @ 210 mls/hr 12/27/18 13:30 12/27/18 15:46 10 mg/ Sodium Chloride IV.SIG 12/28/18 13:44 Infused Q24H DAGO Infusion Lactobacillus Acidophilus 1 tab 12/23/18 13:00 12/27/18 18:44 Lactinex PO 1 tab TID DAGO Administration Levothyroxine Sodium 125 mcg 12/21/18 06:27 12/28/18 05:22 Synthroid PO 125 mcg DAILY@0600 DAGO Administration Padimate O 1 applicatio 12/27/18 03:45 12/27/18 04:39 Chapstick TOPICAL 1 applicatio UNSCH PRN Administration DRY LIPS Pantoprazole Sodium 40 mg 12/24/18 14:00 12/27/18 09:35 Protonix PO 40 mg DAILY DAGO Administration Prednisone 10 mg 12/25/18 21:00 02/27/19 20:19 Deltasone PO 12/31/18 23:59 10 mg BID DAGO Administration Sodium Chloride 2 ml 12/20/18 21:00 12/27/18 20:20 Ns Flush IV.FLUSH 2 ml BID DAGO Administration Sodium Chloride 1 gm 12/22/18 09:15 12/27/18 20:19 Sodium Chloride PO 1 gm BID DAGO Administration Tramadol HCl 100 mg 12/21/18 10:46 12/27/18 20:20 Ultram PO 100 mg Q6H PRN Administration Acute Pain 3-5 Objective Remarks: General physical appearance: Patient is an elderly lady, she sitting up in bed, she appears to be no acute distress she has a pleasant disposition. She speaks to me in full sentences, she is awake, alert and oriented x3. HEENT: Head atraumatic no cephalic, conjunctivae are non-pale sclerae anicteric , EOMI, PERRLA. Neck examination: On today's examination she has bilateral; right and left sided enlarged supraclavicular lymph nodes. Respiratory exam: Good air movement bilaterally, she has expiratory wheezing, scattered rales and rhonchi. Coarse crepitus. Cardioascular exam: Regular rate and rhythm, S1-S2 no obvious murmurs rubs gallops. Good peripheral pulses, no peripheral edema. Abdominal exam: Protuberant abdomen, soft, nontender, nondistended no palpable hepatosplenomegaly. Lower extremity's no pretibial edema no calf tenderness. PHYSICAL SECURITY MANAGER: No focal sensorimotor deficits. Musculoskeletal: Good muscle mass, tone and strength. 5 out of 5 upper and lower tremors. Psychiatric: Awake, alert, oriented, appropriate, understanding conversation held today. Skin examination: Nonfocal. Remainder of the exam was normal. Assessment/Plan - Plan 78-year-old female who has a [id number] smoking history admitted with increased shortness of breath, headache and dry cough. CT imaging of the chest showed a right hilar mass with abnormal soft tissue extending directly into the mediastinum with some circumferential involvement of the left main pulmonary artery in the right main bronchus. 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 Sodium levels marginally improved over the past weekend with fluid restriction alone. Recommendations: 1. 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 Today will be cycle number 1 day 2 systemic chemotherapy, she received day 1 carboplatin and etoposide on 2018. 2. Hyponatremia: Sodium level greatly improved. I anticipate continued improvement following initiation of systemic therapy due to improved systemic cancer burden. Clear for discharge from an oncologic standpoint after she completes etoposide infusion later this afternoon. I have arranged outpatient follow-up at my [facility] next week.
[2018-12-28] MEDS: predniSONE 10 MG Tablet PO SCH (10:14)
[2018-12-28] MEDS: Lactobacillus Acidophilus/L. Spores Tablet PO SCH ×3 (10:14→17:20)
[2018-12-28] MEDS: guaiFENesin 600 MG ER Tablet PO SCH (10:14)
[2018-12-28] MEDS: Sodium Chloride 1 GM Tablet PO SCH (10:14)
[2018-12-28] MEDS: Dexamethasone Inj 10 MG in Sodium Chlor 0.9% Inj 50 ML IV.SIG SCH (13:49)
[2018-12-28] MEDS: SODIUM CHLOR 0.9% IV.SIG SCH (14:36)
[2018-12-28] MEDS: ETOPOSIDE IV.SIG SCH (14:36)
[2018-12-28] MEDS ORDERED: Heparin Central Flush 100 UNIT/ML 5 ML Vial IV.FLUSH PRN ×2 (17:11)
[2018-12-28 17:14] VITALS: BP 144/76; PULSE 75; TEMP 97.7; O2SAT 99
== END 2018-12-28 17:43 | disposition home health service (06) | DRG 180 ==
LOC: PHED 12:03 → PHEDA 15:56 → N05 20:15 → HCIN 12-23 17:34
PROVIDERS: ADMIT Hospitalist; ATTEND Hospitalist
DX: Z88.6 Allergy status to analgesic agent; J44.0 Chronic obstructive pulmonary disease with (acute) lower respiratory infection; E78.5 Hyperlipidemia, unspecified; E22.2 Syndrome of inappropriate secretion of antidiuretic hormone; F17.211 Nicotine dependence, cigarettes, in remission; R73.9 Hyperglycemia, unspecified; J18.9 Pneumonia, unspecified organism; Z77.090 Contact with and (suspected) exposure to asbestos; M25.511 Pain in right shoulder; E03.9 Hypothyroidism, unspecified; J96.00 Acute respiratory failure, unspecified whether with hypoxia or hypercapnia; E87.8 Other disorders of electrolyte and fluid balance, not elsewhere classified; C34.81 Malignant neoplasm of overlapping sites of right bronchus and lung; Z80.41 Family history of malignant neoplasm of ovary; J44.1 Chronic obstructive pulmonary disease with (acute) exacerbation; R51 Headache; J84.10 Pulmonary fibrosis, unspecified; Z79.890 Hormone replacement therapy; Z80.1 Family history of malignant neoplasm of trachea, bronchus and lung; M54.9 Dorsalgia, unspecified; R77.2 Abnormality of alphafetoprotein; Z90.49 Acquired absence of other specified parts of digestive tract; R59.0 Localized enlarged lymph nodes; Z88.0 Allergy status to penicillin
CPT/HCPCS: 31625; 36561; 70450; 70553; 71010; 71045; 71275; 74177; 75998; 76937; 77001; 80048; 80053; 82105; 82378; 83036; 83520; 83615; 83735; 83880; 83935; 84300; 84484; 85025; 85379; 85610; 85730; 86300; 86304; 87015; 87070; 87102; 87116; 87205; 87206; 87449; 87493; 88112; 88305; 88341; 88343; 90765; 93005; 94150; 94618; 94620; 94640; 94664; 94665; 96365; 99145; 99152; 99153; 99231; 99291; A9585; C1788; G0462; J0456; J0690; J0696; J1100; J1626; J1642; J2250; J2405; J2704; J2710; J2920; J3010; J3370; J7030; J7040; J7050; J7506; J7512; J9045; J9181; Q9967